=== PATIENT | female | born 1935 | race Caucasian/White ===

== ENCOUNTER 2018-06-06 11:22 | Observation (INO) ==
[2018-06-06] MEDS ORDERED: Ondansetron 4 MG/2 ML VIAL IVP ONE (11:30)
[2018-06-06] MEDS ORDERED: Nystatin Cream 15 GM TUBE TP STA (11:31)
[2018-06-06] MEDS ORDERED: Ipratropium/Albuterol Neb 3 ML IH ONE (11:31)
[2018-06-06] MEDS ORDERED: 0.9 % Sodium Chloride 500 ML IVC ONE (11:31)
[2018-06-06] MEDS ORDERED: Erythromycin OPTH Oint LEFT EYE STA (11:31)
[2018-06-06] MEDS ORDERED: Isovue-370 500 ML INFUS..BTL IV ONE (11:36)
--- NOTE | 2018-06-06 11:36 | Emergency Department Note ---
Disposition Clinical Impression: Bacterial conjunctivitis of left eye, Yeast infection of the skin, Weakness, Pulmonary vascular congestion UTI (urinary tract infection) Qualifiers: Urinary tract infection type: site unspecified Hematuria presence: without hematuria Qualified Code(s): N39.0 - Urinary tract infection, site not specified Disposition: Admitted As Inpatient Condition: Fair General Adult HPI - General Chief complaint: ED General Medical Stated complaint: General Time Seen by Provider: 06/06/18 11:30 Source: patient, EMS Limitations: no limitations Nursing Notes Reviewed: Yes Vital Signs Reviewed: Yes - History of Present Illness HPI Narrative: 82-year-old female with history of diabetes, COPD on home oxygen, tremors, significant cardiac history presents from home for evaluation of multiple complaints. Patient states symptoms been getting worse over the last week. Patient describes nausea with several episodes of vomiting this morning. She has had loose stools of last several days describes 3-4 episodes without blood. Patient states she has been more short of breath over the last 2 weeks. Patient with decreased exertional capacity. 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 The patient states that they were looking for nerve damage. Patient has no specific known sick contacts. Pain Scale: 0 - Related Data Home Medications Medication Instructions Recorded Confirmed Aspirin [Adult Low Dose Aspirin EC] 81 mg PO DAILY 10/17/15 06/06/18 Gabapentin [Neurontin] 300 mg PO TID 10/17/15 06/06/18 Lisinopril [Zestril] 5 mg PO BID 10/17/15 06/06/18 Metoprolol [Lopressor] 50 mg PO BID 10/17/15 06/06/18 Primidone [Mysoline] 50 mg PO DAILY 10/17/15 06/06/18 Trospium Chloride 20 mg PO DAILY 10/17/15 06/06/18 predniSONE [PredniSONE] 2.5 mg PO BID 10/17/15 06/06/18 Citalopram Hydrobromide [Celexa] 20 mg PO DAILY 12/07/15 06/06/18 Cyanocobalamin (Vitamin B-12) 1,000 mcg PO DAILY 12/07/15 06/06/18 [Vitamin B12] Ferrous Sulfate [Iron] 325 mg PO BID 12/07/15 06/06/18 Loratadine [Claritin] 10 mg PO DAILY 12/07/15 06/06/18 Pantoprazole Sodium [Protonix] 40 mg PO DAILY 12/22/15 06/06/18 Atorvastatin [Lipitor] 40 mg PO HS 06/02/17 06/06/18 Levothyroxine Sodium [Levoxyl] 50 mcg PO DAILY 06/02/17 06/06/18 Saxagliptin HCl [Onglyza] 5 mg PO DAILY 06/02/17 06/06/18 Cholecalciferol (Vitamin D3) 2,000 unit PO DAILY 07/16/17 06/06/18 [Vitamin D] Colchicine [Colcrys] 0.6 mg PO DAILY 07/16/17 06/06/18 Glimepiride [Amaryl] 1 mg PO DAILY 11/10/17 06/06/18 Alendronate Sodium [Fosamax] 70 mg PO QWEEK 06/06/18 06/06/18 Escitalopram [Lexapro] 20 mg PO DAILY 06/06/18 06/06/18 Lactobacillus Acidophilus 1 cap PO DAILY 06/06/18 06/06/18 [Acidophilus] Previous Rx's Medication Instructions Recorded Albuterol Sulfate [Ventolin Hfa] 2 puff IH Q4HR PRN #1 each 03/25/18 Allergies Allergy/AdvReac Type Severity Reaction Status Date / Time Amoxicillin Allergy See Verified 01/14/18 11:18 Comments clavulanic acid Allergy See Verified 01/14/18 11:18 [From Augmentin] Comments Penicillins Allergy See Verified 01/14/18 11:18 Comments Sulfa (Sulfonamide Allergy See Verified 01/14/18 11:18 Antibiotics) Comments topiramate Allergy See Verified 01/14/18 11:18 Comments nitrofurantoin AdvReac Vomiting Verified 01/14/18 11:18 [From Macrobid] nitroglycerin AdvReac Headache Verified 01/14/18 11:18 Oxycodone AdvReac Hallucinati Verified 01/14/18 11:18 ng All systems ED: reviewed and negative except as stated. Constitutional: Reports: fever, chills, weakness, other (Worsening tremors) Eyes: Reports: eye discharge Cardiovascular: Reports: chest pain, dyspnea on exertion Respiratory: Reports: cough, dyspnea, wheezes Gastrointestinal: Reports: abdominal pain, nausea, vomiting, diarrhea. Denies: hematemesis, melena, hematochezia Genitourinary: Reports: urgency, dysuria, frequency Musculoskeletal: Reports: back pain (Right flank) Integumentary: Reports: rash (Underneath the left breast) Neurological: Reports: weakness (Generalized) Endocrine: Reports: fatigue Past Medical History - Past Medical History Medical history: Reports: asthma, diabetes Surgical history: Reports: angioplasty/stent, cholecystectomy, hysterectomy, knee replacement, orthopedic, other Psychiatric history: Reports: anxiety, depression - Social History Smoking Status: Never smoker Smokeless Tobacco Status: No Alcohol use: Reports: none Drug use: Reports: none Physical Exam General: Patient with generalized tremor, generalized weakness Head: Normocephalic Atraumatic Eyes: PERRL, EOMI; conjunctivitis with mild discharged to the left eye. ENT: Airway patent, no stridor Neck: supple, no meningismus Chest: Mild expiratory wheezing worse the bases Cardiac: Regular rhythm Abdomen: soft, nontender, nondistended; no guarding, rebound, or tenderness to percussion Musculoskeletal: Calves symmetric, nontender, no palpable cord Skin: Rash underneath left breast Neuro: Alert and Oriented to person, place, and time; No focal deficit, CN 2-12 symmetric and intact - General Limitations: no limitations General appearance: alert, in no apparent distress Course - Reevaluation(s) Reevaluation #1: On reevaluation the patient is complaining of left lower quadrant abdominal pain. CT scan has been ordered. Reevaluation #2: CT scan with no specific findings. Patient does have significant urinary tract infection. Patient has been given ceftriaxone. Patient's ENP is mildly elevated. She is Very vascular congestion. She will need gentle fluid resuscitation. Patient also has conjunctivae discussed as well as a fundal infection underneath the left breast. Erythromycin ointment and nystatin has been provided in the emergency department. These will likely need to be continued during her hospital stay. Further evaluation of the eye complaint. She does have drainage consistent with a purulent conjunctivitis. The patient does not have any vision decreased in that side and does not have any pain associated with extraocular muscle movements or tenderness to palpation of the eye. Reevaluation #3: After admission I was notified by nurse practitioner admitting with the hospitalist that the patient's daughter complained of slurred speech. I did evaluate the patient and she does seem more tired than she was when she got here. The patient's got multiple blankets on top of her and is now warm compared to her being previously cool to the touch. The patient did receive her initial 500 mL fluid bolus but her respiratory symptoms have gotten worse. Likely worsening of her pulmonary vascular congestion, breathing difficulty, the fact that she has a significant urinary tract infection contributing to global confusion. No focal deficits at this time. Patient is able to state her name as well as her daughter's name without any slurred speech. - Consultations Consultation #1: Discussed with hospitalist. Patient brought in secondary to living at home, weakness, urinary tract infection. Patient will need continued treatment or conjunctivitis as well as left breast fungal infection. Vital Signs Temperature 100.1 F H 06/06/18 11:24 Pulse Rate 83 06/06/18 11:24 Respiratory Rate 18 06/06/18 11:24 Blood Pressure 141/88 06/06/18 11:24 O2 Sat by Pulse Oximetry 94 06/06/18 11:24 Temperature 100.1 F H 06/06/18 11:24 Pulse Rate 83 06/06/18 11:24 Respiratory Rate 18 06/06/18 11:24 Blood Pressure 141/88 06/06/18 11:24 O2 Sat by Pulse Oximetry 96 06/06/18 11:29 Oxygen Delivery Oxygen Delivery Nasal Cannula Medical Decision Making - Medical Records Medical records reviewed: Yes I reviewed the patient's medical records. - Lab Data Lab results reviewed: Yes I reviewed the patient's lab results. Result diagrams: 06/06/18 12:25 06/06/18 12:25 Lab Results 06/06/18 06/06/18 06/06/18 Range/Units 12:20 12:25 12:25 WBC 10.2 (4.3-11.1) K/mcL RBC 3.80 L (3.82-4.97) M/mcL Hgb 11.9 (11.5-15.4) g/dL Hct 37.3 (35.3-44.9) % MCV 98.2 (83.0-100.0) fL MCH 31.3 (28.0-33.3) pg MCHC 31.9 (31.6-35.5) g/dL RDW 15.3 H (11.5-14.5) % Plt Count 174 (140-400) K/mcL MPV 10.2 (9.4-12.4) fL Immature Gran % 0.4 (0-4) % Seg Neutrophils % 85.6 % Lymphocytes % 8.2 % Monocytes % 4.3 % Eosinophils % 1.3 % Basophils % 0.2 % Neutrophils # 8.7 (1.6-8.9) K/mcL Lymphocytes # 0.8 (0.6-4.6) K/mcL Monocytes # 0.4 (0.0-1.3) K/mcL Eosinophils # 0.1 (0.0-0.6) K/mcL Basophils # 0.0 (0.0-0.2) K/mcL Sodium 130 L (136-145) mEq/L Potassium 4.4 (3.5-5.1) mEq/L Chloride 94 L (98-107) mEq/L Carbon Dioxide 29 (23-29) mEq/L BUN 20 (8-23) mg/dL Creatinine 1.02 (0.60-1.20) mg/dL Est GFR ( Amer) > 60 (> 60) Est GFR (Non-Af Amer) 52 L (> 60) BUN/Creatinine Ratio 20 (6-26) Glucose 182 H (70-105) mg/dL Calculated Osmolality 277 L (280-300) Lactic Acid 1.5 (0.5-2.2) mmol/L Calcium 9.2 (8.6-10.3) mg/dL Troponin I (< 0.04) ng/mL B-Natriuretic Peptide (Less than 100) pg/mL Urine Color (Yellow) Urine Clarity (Clear) Urine pH (5.0-8.0) pH Units Ur Specific Vivian (1.010-1.025) Urine Protein (Neg-Trace) mg/dL Urine Glucose (UA) (Normal) mg/dL Urine Ketones (Negative) mg/dL Urine Blood (Negative) Urine Nitrite (Negative) Urine Bilirubin (Negative) Urine Urobilinogen (Normal) mg/dL Ur Leukocyte Esterase (Negative) Urine Microscopic RBC (0-3) per hpf Urine Microscopic WBC (0-3) per hpf Ur Squamous Epith Cells (None-Few) per lpf Urine Bacteria (None-Few) per hpf Hyaline Casts (None-Few) per lpf Urine Yeast Ur Culture Indicated? (NO) 09/22/18 09/22/18 09/22/18 Range/Units 12:25 12:25 12:43 WBC (4.3-11.1) K/mcL RBC (3.82-4.97) M/mcL Hgb (11.5-15.4) g/dL Hct (35.3-44.9) % MCV (83.0-100.0) fL MCH (28.0-33.3) pg MCHC (31.6-35.5) g/dL RDW (11.5-14.5) % Plt Count (140-400) K/mcL MPV (9.4-12.4) fL Immature Gran % (0-4) % Seg Neutrophils % % Lymphocytes % % Monocytes % % Eosinophils % % Basophils % % Neutrophils # (1.6-8.9) K/mcL Lymphocytes # (0.6-4.6) K/mcL Monocytes # (0.0-1.3) K/mcL Eosinophils # (0.0-0.6) K/mcL Basophils # (0.0-0.2) K/mcL Sodium (136-145) mEq/L Potassium (3.5-5.1) mEq/L Chloride (98-107) mEq/L Carbon Dioxide (23-29) mEq/L BUN (8-23) mg/dL Creatinine (0.60-1.20) mg/dL Est GFR ( Amer) (> 60) Est GFR (Non-Af Amer) (> 60) BUN/Creatinine Ratio (6-26) Glucose (70-105) mg/dL Calculated Osmolality (280-300) Lactic Acid (0.5-2.2) mmol/L Calcium (8.6-10.3) mg/dL Troponin I < 0.03 (< 0.04) ng/mL B-Natriuretic Peptide 163 H (Less than 100) pg/mL Urine Color Yellow (Yellow) Urine Clarity Turbid A (Clear) Urine pH 5.5 (5.0-8.0) pH Units Ur Specific Vivian 1.016 (1.010-1.025) Urine Protein 30 H (Neg-Trace) mg/dL Urine Glucose (UA) Normal (Normal) mg/dL Urine Ketones Negative (Negative) mg/dL Urine Blood Small H (Negative) Urine Nitrite Negative (Negative) Urine Bilirubin Negative (Negative) Urine Urobilinogen Normal (Normal) mg/dL Ur Leukocyte Esterase Large H (Negative) Urine Microscopic RBC 0-3 (0-3) per hpf Urine Microscopic WBC TNTC H (0-3) per hpf Ur Squamous Epith Cells Moderate H (None-Few) per lpf Urine Bacteria Many H (None-Few) per hpf Hyaline Casts None Seen (None-Few) per lpf Urine Yeast Test Not Performed Ur Culture Indicated? YES A (NO) - Radiology Data Radiology results reviewed: Yes I reviewed the patient's radiology results. - EKG Data EKG #1 EKG attestation: Yes I reviewed and interpreted this EKG. EKG results narrative: Sinus rhythm, 85, [place] 187. QRS 83. QTC 407. Patient has no significant elevations. Concern for mild depressions in the inferior leads most significant before meals on EKG in lead 2.
[2018-06-06 12:47] LABS: Basophils % 0.2 %; Eosinophils # 0.1 K/mcL (0.0-0.6); Eosinophils % 1.3 %; Hematocrit 37.3 % (35.3-44.9); Hemoglobin 11.9 g/dL (11.5-15.4); Immature Granulocytes % 0.4 % (0-4); Lymphocytes # 0.8 K/mcL (0.6-4.6); Lymphocytes % 8.2 %; Mean Corpuscular HGB Conc 31.9 g/dL (31.6-35.5); Mean Corpuscular Hemoglobin 31.3 pg (28.0-33.3); Mean Corpuscular Volume 98.2 fL (83.0-100.0); Mean Platelet Volume 10.2 fL (9.4-12.4); Monocytes # 0.4 K/mcL (0.0-1.3); Monocytes % 4.3 %; Neutrophils # 8.7 K/mcL (1.6-8.9); Platelet Count 174 K/mcL (140-400); Red Cell Distribution Width 15.3 % (11.5-14.5); Segmented Neutrophils % 85.6 %
[2018-06-06 13:00] LABS: BUN/Creatinine Ratio 20 (6-26); Blood Urea Nitrogen 20 mg/dL (8-23); Calcium 9.2 mg/dL (8.6-10.3); Carbon Dioxide 29 mEq/L (23-29); Chloride 94 mEq/L (98-107); Glucose 182 mg/dL (70-105); Osmolality,Calculated 277 (280-300); Potassium 4.4 mEq/L (3.5-5.1); Sodium 130 mEq/L (136-145); eGFR For Non-African Americans 52 (> 60)
[2018-06-06 13:05] LABS: Bilirubin,Urine Negative (Negative); Blood,Urine Small (Negative); Clarity,Urine Turbid (Clear); Color,Urine Yellow (Yellow); Glucose,Urine (UA) Normal (Normal); Ketones,Urine Negative (Negative); Leukocyte Esterase,Urine Large (Negative); Nitrite,Urine Negative (Negative); PH,Urine 5.5 pH Units (5.0-8.0); Protein,Urine 30 mg/dL (Neg-Trace); Specific Gravity,Urine 1.016 (1.010-1.025); Urobilinogen,Urine Normal (Normal)
[2018-06-06 13:08] LABS: Bacteria,Urine Many per hpf (None-Few); Hyaline Casts,Urine None Seen per lpf (None-Few); WBC,Urine TNTC per hpf (0-3)
[2018-06-06 13:24] LABS: RBC,Urine 0-3 per hpf (0-3)
[2018-06-06 13:25] LABS: Squamous Epithelial Cell,Urine Moderate per lpf (None-Few)
[2018-06-06] MEDS ORDERED: cefTRIAXone 1,000 MG in Water for inj. (sterile) 20 ML 10 ML IVP ONE (15:44)
[2018-06-06] MEDS ORDERED: Furosemide 40 MG/4 ML VIAL IVP STA (16:45)
[2018-06-06] MEDS ORDERED: Naloxone 0.4 MG/ML INJ IVP PRN (17:13)
[2018-06-06] MEDS ORDERED: Ondansetron 4 MG/2 ML VIAL IVP PRN (17:23)
[2018-06-06] MEDS ORDERED: Ipratropium/Albuterol Neb 3 ML IH PRN (17:25)
[2018-06-06] MEDS ORDERED: D5% in Water 1,000 ML IVC PRN (17:27)
[2018-06-06] MEDS ORDERED: *HR* Dextrose 50 % in Water (Syg) 50 ML SYRINGE IVP PRN (17:27)
[2018-06-06] MEDS ORDERED: Dextrose Gel 15 GM/37.5 ML TUBE PO PRN ×2 (17:27)
--- NOTE | 2018-06-06 17:44 | Internal Med History&Physical ---
Addendum entered and electronically signed by Alexei Moody CNP 06/06/18 19 :01: Rash noted under left and right breast, erythematous and warm. Original Note: <Alexei Moody - Last Filed: 06/06/18 18:23> Date of Encounter: 06/06/18 Time of Encounter: 16:15 Internal Medicine - H&P: HPI Chief complaint: Nausea, Vomiting, Weakness Admitted From: Home Plans for Post Hospital Care: Home History of present illness: Ms. Trotter is a 82 year old female with past medical history significant for CAD with stent, diabetes, COPD, generalized tremors, acid reflux, hypothyroidism , and osteoporosis who presents for multiple complaints including 2 day history of nausea, vomiting, fever (highest reported 100.9), chills, generalized aches, increased dyspnea, urinary frequency, and foul smelling dark urine getting progressively worse. Has generalized aches but denies specific chest pain or abdominal pain at this time. No diarrhea or known sick contacts. Also complains of swelling and drainage of left eye without vision changes and fungal infection underneath her left breast for the same duration. Most recent bowel movement was today. Denies any alleviating or exacerbating factors. No current treatment. Normally wears 2-3lpm nasal canula at home. Upon initiating my exam, patients daughter at bedside was concerned her speech had changed and was possibly slurred. Patient had just awoke upon my presentation. ER attending alerted and re examined patient and did not appreciate any neurological deficits and neither did I. Patients daughter felt her speech had improved once the patient was more awake. Discussed patient with Dr Mcdonald. Past Med Surg Social Fam HX - Past Medical History Medical history: asthma, diabetes Additional medical history: tremors Psychiatric history: anxiety, depression - Past Surgical History Surgical History: angioplasty/stent, cholecystectomy, hysterectomy, knee replacement, orthopedic, other Additional surgical history: rectocel, biopsy on both breast, broken finger - Social History Smoking Status: Never smoker Smokeless Tobacco Status: No Alcohol use: none Drug use: none - Family History Father Hx Family Cardiac Disorders: Yes Hx Family Endocrine Disorder: Yes (Diabetes) Mother Living Status: Hx Family Cardiac Disorders: Yes (CHF, Hypertension) Hx Family Endocrine Disorder: Yes (Diabetes) Internal Medicine - H&P: Meds Aspirin [Adult Low Dose Aspirin EC] 81 mg PO DAILY 10/17/15 [History] Gabapentin [Neurontin] 300 mg PO TID 10/17/15 [History] Lisinopril [Zestril] 5 mg PO BID 10/17/15 [History] Metoprolol [Lopressor] 50 mg PO BID 10/17/15 [History] Primidone [Mysoline] 50 mg PO DAILY 10/17/15 [History] Trospium Chloride 20 mg PO DAILY 10/17/15 [History] predniSONE [PredniSONE] 2.5 mg PO BID 10/17/15 [History] Citalopram Hydrobromide [Celexa] 20 mg PO DAILY 12/07/15 [History] Cyanocobalamin (Vitamin B-12) [Vitamin B12] 1,000 mcg PO DAILY 12/07/15 [History ] Ferrous Sulfate [Iron] 325 mg PO BID 12/07/15 [History] Loratadine [Claritin] 10 mg PO DAILY 12/07/15 [History] Pantoprazole Sodium [Protonix] 40 mg PO DAILY 12/22/15 [History] Atorvastatin [Lipitor] 40 mg PO HS 06/02/17 [History] Levothyroxine Sodium [Levoxyl] 50 mcg PO DAILY 06/02/17 [History] Saxagliptin HCl [Onglyza] 5 mg PO DAILY 06/02/17 [History] Cholecalciferol (Vitamin D3) [Vitamin D] 2,000 unit PO DAILY 07/16/17 [History] Colchicine [Colcrys] 0.6 mg PO DAILY 07/16/17 [History] Glimepiride [Amaryl] 1 mg PO DAILY 11/10/17 [History] Albuterol Sulfate [Ventolin Hfa] 2 puff IH Q4HR PRN #1 each 03/25/18 [Rx] Alendronate Sodium [Fosamax] 70 mg PO QWEEK 06/06/18 [History] Escitalopram [Lexapro] 20 mg PO DAILY 06/06/18 [History] Lactobacillus Acidophilus [Acidophilus] 1 cap PO DAILY 06/06/18 [History] 3 Allergy/AdvReac Type Severity Reaction Status Date / Time Amoxicillin Allergy See Verified 01/14/18 11:18 Comments clavulanic acid Allergy See Verified 01/14/18 11:18 [From Augmentin] Comments Penicillins Allergy See Verified 01/14/18 11:18 Comments Sulfa (Sulfonamide Allergy See Verified 01/14/18 11:18 Antibiotics) Comments topiramate Allergy See Verified 01/14/18 11:18 Comments nitrofurantoin AdvReac Vomiting Verified 01/14/18 11:18 [From Macrobid] nitroglycerin AdvReac Headache Verified 01/14/18 11:18 Oxycodone AdvReac Hallucinati Verified 01/14/18 11:18 ng All Systems PM: A 10-system review of systems was performed and is negative for pertinent findings except as documented above in the HPI. - Constitutional Vitals: Temp Pulse Resp BP Pulse Ox 99.8 F H 83 18 135/76 96 06/06/18 17:17 06/06/18 11:24 06/06/18 17:07 06/06/18 17:07 06/06/18 11:29 Exam: General: Drowsy. Oriented x3. Skin:Normal color, no rash, no lesions. Rash noted under left breast, erythematous and warm. HEENT:Pupils equal, round and reactive. Left eye red and edematous with drainage. Cardiovascular:Heart sounds distant. Normal S1 & S2, no rubs, murmurs or gallops. No JVD. Pulse regular. Lungs:Breath sounds decreased, no wheezes or crackles. Respirations slightly labored with no accessory muscle use. Abdomen:Soft, non-tender, no rigidity. Extremities:No deformity, no edema or tenderness, no joint swelling or clubbing. Neurological:Normal cognition and motor skills. Chronic generalized tremor noted. Pulses:Carotid and radial pulses normal +2. Rest of the physical exam is non contributory. Internal Med - H&P Results - Labs CBC & Chem 7: 06/06/18 12:25 06/06/18 12:25 - Assessment and plan (1) UTI (urinary tract infection) Current Visit: Yes Status: Acute Assessment and plan: Rocephin started in ER, will continue same tomorrow. Urine culture pending. Blood cultures pending. Monitor closely for sepsis. Qualifiers: Urinary tract infection type: site unspecified Hematuria presence: with hematuria Qualified Code(s): N39.0 - Urinary tract infection, site not specified; R31.9 - Hematuria, unspecified (2) Shortness of breath Current Visit: Yes Status: Acute Assessment and plan: BIPAP ordered. Duoneb treatment in ER, continue as needed. Monitor I/O. Echocardiogram ordered. Lasix received in ER. Does not take regularly will continue to reassess for further need in light of dehydration. (3) Cellulitis Current Visit: Yes Status: Acute Assessment and plan: Start vancomycin. MRSA swab ordered. Monitor closely for sepsis. Qualifiers: Site of cellulitis: trunk Site of cellulitis of trunk: chest wall Qualified Code(s): L03.313 - Cellulitis of chest wall (4) Bacterial conjunctivitis of left eye Current Visit: Yes Status: Acute Assessment and plan: Erythromycin ointment started in ER, will continue the same. (5) Nausea & vomiting Current Visit: Yes Status: Acute Assessment and plan: Zofran as needed. Encourage oral intake. Qualifiers: Vomiting type: unspecified Vomiting Intractability: non-intractable Qualified Code(s): R11.2 - Nausea with vomiting, unspecified (6) Diabetes mellitus Current Visit: Yes Status: Acute Assessment and plan: Accucheck ACHS. Sliding scale insulin. Diabetic diet. Hold home diabetic medications. Qualifiers: Diabetes mellitus type: type 2 Diabetes mellitus tourist information officer insulin use: without half-way use Diabetes mellitus complication status: without complication Qualified Code(s): E11.9 - Type 2 diabetes mellitus without complications (7) Dehydration Current Visit: Yes Status: Acute Assessment and plan: Zofran for nausea. Encourage oral intake. Repeat labs in a.m. - Time Spent With Patient Total time spent is greater than 50% in coordination of care (as documented) at patient's floor/unit and/or counseling patient: <Karen Mcdonald T - Last Filed: 06/06/18 19:21> Date of Encounter: 06/06/18 Internal Medicine - H&P: HPI History of present illness: Ms. Trotter is a 82 year old female All Systems PM: A 10-system review of systems was performed and is negative for pertinent findings except as documented above in the HPI. - Constitutional Vitals: Temp Pulse Resp BP Pulse Ox 101.2 F H 97 16 131/74 97 06/06/18 18:18 06/06/18 18:18 06/06/18 18:18 06/06/18 18:18 06/06/18 18:18 Internal Med - H&P Results - Labs CBC & Chem 7: 06/06/18 12:25 06/06/18 12:25 - Time Spent With Patient Total time spent is greater than 50% in coordination of care (as documented) at patient's floor/unit and/or counseling patient: - Attending Attestation Seen and examined the patient face to face. Also discussed case with PATENT LEGAL ASSISTANT. Agree with the nurse practitioners H&P. In addition to following comments. Mentation not completely at baseline per family was at bedside. Patient has mild conversational dyspnea. Exam Neuro: On exam she is alert oriented 3. Good strength in all extremities. Plantar flexor. Cranial nerves grossly unremarkable motor and sensory exam grossly unremarkable. Has tremors at baseline. Skin: Extensive cellulitis under both breasts and groin which is painful, erythematous and warm. Eye: Patient has purulent discharge from the right eye. Swelling of upper and lower eyelids mildly painful. Extraocular movements nonpainful nonlimited. Pupils equally reactive to light bilaterally. RS: Mild rales at the bases. Air entry equal bilaterally. CVS: S1, S2 is normal, no murmur rubs or gallops. Abdomen: Obese, A/P - Altered mentation most likely from sepsis. We will get head CT to rule out intracranial processes. - We will add vancomycin given the previous urine cultures as well as cellulitis. Possible fungal infection, currently. We will add topical having antifungals. Follow-up blood and urine cultures - We will keep patient on BiPAP given chest x-ray finding of mild pulmonary edema and some shortness of breath. 1 dose of Lasix. - Add topical erythromycin ointment for conjunctivitis in the right eye.
[2018-06-06] MEDS ORDERED: (Alendronate Sodium [Fosamax] 70 MG) PO SCH (18:30)
[2018-06-06] MEDS: Insulin LISPRO 300 UNITS/3 ML VIAL SQ SCH (20:56)
[2018-06-06] MEDS: Nystatin Cream 15 GM TUBE TP SCH (20:57)
[2018-06-06] MEDS: predniSONE 5 MG TABLET PO SCH (20:58)
[2018-06-06] MEDS: Gabapentin 300 MG CAPSULE PO SCH (20:58)
[2018-06-06 21:16] LABS: ABG Base Excess 3 mEq/L (-2 to 3); ABG HCO3 28 mEq/L (21-27); ABG Oxygen Saturation 97 % (95-98); ABG PCO2 41 mmHg (35-45); ABG PH 7.43 pH Units (7.32-7.45); ABG PO2 89 mmHg (85-104); ABG TCO2 29 mEq/L (20-26)
[2018-06-06] MEDS: Erythromycin OPTH Oint LEFT EYE SCH (22:30)
[2018-06-07] MEDS: *HR* Enoxaparin 30 MG/0.3 ML SYRINGE SQ SCH (06:20)
[2018-06-07 06:39] LABS: Basophils % 0.2 %; Eosinophils % 0.2 %; Hematocrit 33.2 % (35.3-44.9); Hemoglobin 10.8 g/dL (11.5-15.4); Immature Granulocytes % 0.3 % (0-4); Lymphocytes # 0.4 K/mcL (0.6-4.6); Lymphocytes % 3.6 %; Mean Corpuscular HGB Conc 32.5 g/dL (31.6-35.5); Mean Corpuscular Hemoglobin 31.5 pg (28.0-33.3); Mean Corpuscular Volume 96.8 fL (83.0-100.0); Mean Platelet Volume 9.7 fL (9.4-12.4); Monocytes # 0.4 K/mcL (0.0-1.3); Monocytes % 3.5 %; Neutrophils # 10.7 K/mcL (1.6-8.9); Platelet Count 145 K/mcL (140-400); Red Blood Count 3.43 M/mcL (3.82-4.97); Red Cell Distribution Width 15.7 % (11.5-14.5); Segmented Neutrophils % 92.2 %
[2018-06-07 07:01] LABS: Calcium 8.4 mg/dL (8.6-10.3); Potassium 4.3 mEq/L (3.5-5.1)
[2018-06-07] MEDS: predniSONE 5 MG TABLET PO SCH ×2 (07:42→21:26)
[2018-06-07] MEDS: Insulin LISPRO 300 UNITS/3 ML VIAL SQ SCH ×4 (07:42→21:26)
[2018-06-07] MEDS: Cyanocobalamin (B-12) 1,000 MCG TABLET PO SCH (07:44)
[2018-06-07] MEDS: Lactobacillus 1 EACH CAP.SPRINK PO SCH (07:44)
[2018-06-07] MEDS: Cholecalciferol (D-3) 1,000 UNIT TABLET PO SCH (07:44)
[2018-06-07] MEDS: Aspirin Enteric Coated 81 MG Tablet PO SCH (07:44)
[2018-06-07] MEDS: Loratadine 10 MG TABLET PO SCH (07:44)
[2018-06-07] MEDS: cefTRIAXone 1,000 MG in Water for inj. (sterile) 20 ML 10 ML IVP SCH (07:45)
[2018-06-07] MEDS: Primidone 50 MG TABLET PO SCH (07:45)
[2018-06-07] MEDS: Gabapentin 300 MG CAPSULE PO SCH ×3 (07:45→21:26)
[2018-06-07] MEDS: (Trospium Chloride [Trospium Chloride] 20 MG) PO SCH (07:45)
[2018-06-07] MEDS: Erythromycin OPTH Oint LEFT EYE SCH ×3 (07:45→21:26)
[2018-06-07] MEDS: Nystatin Cream 15 GM TUBE TP SCH ×2 (07:46→21:26)
[2018-06-07] MEDS: Colchicine 0.6 MG TABLET PO SCH (07:46)
--- NOTE | 2018-06-07 12:46 | Internal Med Progress Note ---
Hospitalist Progress Note - Encounter Date of Encounter: 06/07/18 Time of Encounter: 12:46 - Subjective Interval History: Pt having rigors this morning. Temp 99.8, States she is "freezing" Denies vomiting but positive nausea. Denies CP or SOB. Denies constipation or diarrhea. - Exam Vitals: Temp Pulse Resp BP Pulse Ox 98.2 F 88 18 112/64 93 06/07/18 06:45 06/07/18 06:45 06/07/18 06:45 06/07/18 06:45 06/07/18 06:45 Exam: General: Drowsy. Oriented x3. Obese Skin:Normal color, no rash, no lesions. Rash noted under left breast, erythematous and warm. HEENT:Pupils equal, round and reactive. Left eye red and edematous with drainage. Cardiovascular:Heart sounds distant. Normal S1 & S2, no rubs, murmurs or gallops. No JVD. Pulse regular. Lungs:Breath sounds decreased, no wheezes or crackles. Respirations slightly labored with no accessory muscle use. Abdomen:Soft, non-tender, no rigidity. Extremities:No deformity, no edema or tenderness, no joint swelling or clubbing. Neurological:Normal cognition and motor skills. Chronic generalized tremor noted. Pulses:Carotid and radial pulses normal +2. Rest of the physical exam is non contributory. - Assessment and Plan (1) UTI (urinary tract infection) Current Visit: Yes Status: Acute Assessment and Plan: Rocephin started in ER, will continue same tomorrow. Urine culture growing gram negative vargas. Blood cultures pending. Monitor closely for sepsis. (2) Bacterial conjunctivitis of left eye Current Visit: Yes Status: Acute Assessment and Plan: Erythromycin ointment started in ER, will continue the same. (3) Shortness of breath Current Visit: Yes Status: Acute (4) Nausea & vomiting Current Visit: Yes Status: Acute Assessment and Plan: Zofran as needed. Encourage oral intake. (5) Cellulitis Current Visit: Yes Status: Acute Assessment and Plan: Started on Vancomycin. MRSA swab ordered. Monitor closely for sepsis. (6) Diabetes mellitus Current Visit: Yes Status: Acute Assessment and Plan: Accu check ACHS. Sliding scale insulin. Diabetic diet. Hold home diabetic medications. (7) Dehydration Current Visit: Yes Status: Acute Assessment and Plan: Encourage PO intake (8) Hypotension Current Visit: Yes Status: Acute Assessment and Plan: Will give fluid bolus now and order maintenance fluid. Chest x ray on admission showed mild pulmonary congestion so pt was given one time dose lasix. Pt is on Lisinopril 5 mg PO BID which we'll hold for now. (9) Hyponatremia Current Visit: Yes Status: Acute Assessment and Plan: Will give IVF and check monitor sodium level Q4H. Pt recieved Lasix 40 mg x one. DVT Prophylaxis: Lovenox - Summary of Assessment and Plan Summary of Assessment and Plan: Ms. Trotter is a 82 year old female with past medical history significant for CAD with stent, diabetes, COPD, generalized tremors, acid reflux, hypothyroidism , and osteoporosis who presents for multiple complaints including 2 day history of nausea, vomiting, fever (highest reported 100.9), chills, generalized aches, increased dyspnea, urinary frequency, and foul smelling dark urine getting progressively worse. - Time Spent with Patient Total time spent is greater than 50% in coordination of care (as documented) at patient's floor/unit and/or counseling patient: 25 - 35 minutes Plan of Care Discussed with: patient Internal Medicine: Result - Labs CBC & Chem 7: 06/07/18 06:29 06/07/18 06:29 Labs: Short CBC 06/07/18 Range/Units 06:29 WBC 11.6 H (4.3-11.1) K/mcL Hgb 10.8 L (11.5-15.4) g/dL Hct 33.2 L (35.3-44.9) % Plt Count 145 (140-400) K/mcL Neutrophils # 10.7 H (1.6-8.9) K/mcL BMP 06/07/18 06:29 Sodium 128 L Potassium 4.3 Chloride 94 L Carbon Dioxide 27 BUN 25 H Creatinine 1.20 Glucose 337 H Calcium 8.4 L - ABG Interpretation ABG results: ABG ABG pH 7.43 pH Units (7.32-7.45) 06/06/18 21:13 ABG pCO2 41 mmHg (35-45) 06/06/18 21:13 ABG pO2 89 mmHg (85-104) 06/06/18 21:13 ABG O2 Saturation 97 % (95-98) 06/06/18 21:13 Consult Discharge Plan - Plan Referrals: Phyllis,Claudy Morales MD [Primary Care Provider] - (1) UTI (urinary tract infection) Qualifiers: Urinary tract infection type: site unspecified Hematuria presence: with hematuria Qualified Code(s): N39.0 - Urinary tract infection, site not specified; R31.9 - Hematuria, unspecified (4) Nausea & vomiting Qualifiers: Vomiting type: unspecified Vomiting Intractability: non-intractable Qualified Code(s): R11.2 - Nausea with vomiting, unspecified (5) Cellulitis Qualifiers: Site of cellulitis: trunk Site of cellulitis of trunk: chest wall Qualified Code(s): L03.313 - Cellulitis of chest wall (6) Diabetes mellitus Qualifiers: Diabetes mellitus type: type 2 Diabetes mellitus ferry terminal agent insulin use: without ferry terminal agent use Diabetes mellitus complication status: without complication Qualified Code(s): E11.9 - Type 2 diabetes mellitus without complications
[2018-06-07] MEDS ORDERED: 0.9 % Sodium Chloride 500 ML IVC ONE (15:45)
[2018-06-07] MEDS ORDERED: 0.9 % Sodium Chloride 500 ML ONE (16:02)
[2018-06-07] MEDS ORDERED: 0.9 % Sodium Chloride 1,000 ML IVC ONE (16:18)
[2018-06-08] MEDS: *HR* Enoxaparin 30 MG/0.3 ML SYRINGE SQ SCH (06:12)
[2018-06-08] MEDS: (Trospium Chloride [Trospium Chloride] 20 MG) PO SCH (07:14)
[2018-06-08] MEDS ORDERED: Aminoglycoside Consult 1 EACH MC ONE (08:18)
[2018-06-08] MEDS: Nystatin Cream 15 GM TUBE TP SCH (09:07)
[2018-06-08] MEDS: Insulin LISPRO 300 UNITS/3 ML VIAL SQ SCH ×4 (09:07→21:38)
[2018-06-08] MEDS: cefTRIAXone 1,000 MG in Water for inj. (sterile) 20 ML 10 ML IVP SCH (09:08)
[2018-06-08] MEDS: Erythromycin OPTH Oint LEFT EYE SCH ×3 (09:08→20:11)
[2018-06-08] MEDS: Lactobacillus 1 EACH CAP.SPRINK PO SCH (09:09)
[2018-06-08] MEDS: Primidone 50 MG TABLET PO SCH (09:09)
[2018-06-08] MEDS: Loratadine 10 MG TABLET PO SCH (09:09)
[2018-06-08] MEDS: Aspirin Enteric Coated 81 MG Tablet PO SCH (09:09)
[2018-06-08] MEDS: predniSONE 5 MG TABLET PO SCH ×2 (09:09→20:10)
[2018-06-08] MEDS: Colchicine 0.6 MG TABLET PO SCH (09:10)
[2018-06-08] MEDS: Gabapentin 300 MG CAPSULE PO SCH ×3 (09:10→20:10)
[2018-06-08] MEDS: Cholecalciferol (D-3) 1,000 UNIT TABLET PO SCH (09:10)
[2018-06-08] MEDS: Cyanocobalamin (B-12) 1,000 MCG TABLET PO SCH (09:10)
--- NOTE | 2018-06-08 10:49 | Internal Med Progress Note ---
Hospitalist Progress Note - Encounter Date of Encounter: 06/08/18 Time of Encounter: 19:51 - Subjective Interval History: Pt having rigors this morning. Temp 99.8 06/07/18 and Temp 1002. 06/08/18. States she is "freezing." Denies vomiting but positive nausea. Denies CP or SOB. Denies constipation or diarrhea. Discussed current medical status and management with pt's daughter. - Exam Vitals: Temp Pulse Resp BP Pulse Ox 97.9 F 94 15 78/44 96 06/08/18 06:47 06/08/18 06:47 06/08/18 06:47 06/08/18 06:47 06/08/18 06:47 Exam: General: Drowsy. Oriented x3. Obese Skin:Normal color, no rash, no lesions. Rash noted under left breast, erythematous and warm. HEENT:Pupils equal, round and reactive. Left eye red and edematous with drainage. Cardiovascular:Heart sounds distant. Normal S1 & S2, no rubs, murmurs or gallops. No JVD. Pulse regular. Lungs:Breath sounds decreased, no wheezes or crackles. Respirations slightly labored with no accessory muscle use. Abdomen:Soft, non-tender, no rigidity. Extremities:No deformity, no edema or tenderness, no joint swelling or clubbing. Neurological:Normal cognition and motor skills. Chronic generalized tremor noted. Pulses:Carotid and radial pulses normal +2. Rest of the physical exam is non contributory. - Assessment and Plan (1) Sepsis due to gram-negative UTI Current Visit: Yes Status: Acute Assessment and Plan: Today CT chest showing RLL opacity that has increased. Now on Rocephin, Zithromax, and Vancomycin. Pt lives alone and may need placement at discharge (2) PNA (pneumonia) Current Visit: Yes Status: Acute Assessment and Plan: Per nurse, pt's saturation dropped to 71% on her baseline 2L of oxygen. Oxygen improved on 3L NC. ABG reviewed and ok. Pt wheezing per nurse so CT chest ordered. CXR 06/06/18 did not show opacity or infiltrate. CT chest showed increased RLL opacity, PNA vs mass. Has been on Rocephin. Will start on Zithromax IV as well for atypical coverage. Will need out pt follow up imaging to reassess RLL. Will consult speech for swallow eval. Checking sputum culture, legionella urine (in light of low Na), strep urine ag, and Mycoplasma, Chest x ray 06/06/18 XR/XR chest 1V portable IMPRESSION: Mild pulmonary vascular congestion. Low lung volumes. CT chest CT/CT chest wo con IMPRESSION: 1. Hypoinflated lungs and bilateral dependent atelectasis. 2. Increase in size of focal opacification in the right lower lobe, now measuring about 3 x 1.6 cm, previously 0.9 x 0.7 cm. This may represent focal pneumonia versus neoplasm. Short-term follow-up chest CT in approximately 2 months time is recommended. 3. Atherosclerotic disease and coronary artery disease. D/ / Kassandra Chong MD / Kassandra Chong MD (3) Bacterial conjunctivitis of left eye Current Visit: Yes Status: Acute Assessment and Plan: Erythromycin ointment started in ER, will continue the same. (4) Shortness of breath Current Visit: Yes Status: Acute Assessment and Plan: Per nurse, pt's saturation dropped to 71% on her baseline 2L of oxygen. Oxygen improved on 3L NC. ABG reviewed and ok. CXR did not show opacity or infiltrate. CT chest ordered today concerning for PNA vs mass. Added Zithromax IV and had been on Rocephin for cellulitis. Checking sputum culture, legionella urine (in light of low Na), strep urine ag, and Mycoplasma, Chest x ray 06/06/18 XR/XR chest 1V portable IMPRESSION: Mild pulmonary vascular congestion. Low lung volumes. (5) Nausea & vomiting Current Visit: Yes Status: Acute Assessment and Plan: Zofran prn (6) Cellulitis Current Visit: Yes Status: Acute Assessment and Plan: Vancomycin and Rocephin (7) Dehydration Current Visit: Yes Status: Acute Assessment and Plan: Pt went into NADER with fluids so holding for now. (8) Hypotension Current Visit: Yes Status: Acute Assessment and Plan: Chest x ray on admission showed mild pulmonary congestion on admission so pt was given one time dose lasix. Pt was hypotensive 06/07/18 so fluid bolus was given and order maintenance fluid. Today pt is in NADER, so fluid discontinued for now. Will check BMP in am if does not improve or worse Will consider nephrology consult. Lisinopril 5 mg PO BID on hold for now. Will continue to monitor BP. (9) Hyponatremia Current Visit: Yes Status: Acute Assessment and Plan: Checking Na studies ( urine/ serum osmo, and urine Na) to eval for SIADH. Could be due to PNA. (10) Acute cystitis Current Visit: Yes Status: Acute Assessment and Plan: due to Ecoli. Eccoli sensitive to multiple antibiotic, however due to recent dx , of PNA, will continue on IV Rocepohin for now. (11) Odynophagia Current Visit: Yes Status: Acute Assessment and Plan: pt complaining of sor throat and pain with swallowing. Ordering nystatin switch and spit. Rapid strep test negative (12) Diabetes mellitus Current Visit: Yes Status: Acute Assessment and Plan: Accu check ACHS. Sliding scale insulin. Diabetic diet. Hold home diabetic medications. DVT Prophylaxis: Lovenox - Summary of Assessment and Plan Summary of Assessment and Plan: Ms. Trotter is a 82 year old female with past medical history significant for CAD with stent, diabetes, COPD, generalized tremors, acid reflux, hypothyroidism , and osteoporosis who presents for multiple complaints including 2 day history of nausea, vomiting, fever (highest reported 100.9), chills, generalized aches, increased dyspnea, urinary frequency, and foul smelling dark urine getting progressively worse. - Time Spent with Patient Total time spent is greater than 50% in coordination of care (as documented) at patient's floor/unit and/or counseling patient: 25 - 35 minutes Plan of Care Discussed with: family Internal Medicine: Result - Labs CBC & Chem 7: 06/08/18 11:02 06/08/18 11:02 Labs: BMP 06/07/18 06/07/18 06/08/18 16:30 20:08 00:32 Sodium 125 L 127 L 128 L 06/08/18 04:28 Sodium 127 L - ABG Interpretation ABG results: ABG ABG pH 7.43 pH Units (7.32-7.45) 06/06/18 21:13 ABG pCO2 41 mmHg (35-45) 06/06/18 21:13 ABG pO2 89 mmHg (85-104) 06/06/18 21:13 ABG O2 Saturation 97 % (95-98) 06/06/18 21:13 - Impressions Impressions Echocardiogram 06/07/18 17:28 Impressions: LVEF 65%. Mild left ventricular diastolic dysfunction. Normal right ventricular structure and function. No significant valvular abnormality Unable to estimate RVSP due to lack of TR jet. Left Ventricular Wall Motion: Rest Echo Findings All wall segments showed normal motion. Findings: Study Quality * Technically adequate exam. ECG Findings * Normal sinus rhythm. Left Ventricle * LVEF 65%. * Mildly dilated left ventricle. * Mild left ventricular diastolic dysfunction. Right Ventricle * Normal right ventricular structure and function. Left Atrium * Normal left atrial size. Right Atrium * Normal right atrial size. Interatrial Septum * No evidence of PFO by color Doppler. Aortic Valve * Trileaflet aortic valve. * Trileaflet aortic valve with normal function. * No aortic regurgitation. * No aortic stenosis. Tricuspid Valve * Normal tricuspid valve structure and function. * No tricuspid regurgitation. * No tricuspid stenosis. * Unable to estimate RVSP due to lack of TR jet. Mitral Valve * Normal mitral valve structure and function. * No mitral regurgitation. * No mitral stenosis. Aorta * Normally sized aortic root. Pericardium * The pericardium appears normal. IVC * Normal IVC dimensions and inspiratory collapse. Pulmonary Artery * Normal visualized portions of the main pulmonary artery. Consult Discharge Plan - Plan [facility]: [facility] [place] [Primary Care Provider] - (5) Nausea & vomiting Qualifiers: Vomiting type: unspecified Vomiting Intractability: non-intractable Qualified Code(s): R11.2 - Nausea with vomiting, unspecified (6) Cellulitis Qualifiers: Site of cellulitis: trunk Site of cellulitis of trunk: chest wall Qualified Code(s): L03.313 - Cellulitis of chest wall (12) Diabetes mellitus Qualifiers: Diabetes mellitus type: type 2 Diabetes mellitus group home insulin use: without group home use Diabetes mellitus complication status: without complication Qualified Code(s): E11.9 - Type 2 diabetes mellitus without complications
[2018-06-08] MEDS ORDERED: 0.9 % Sodium Chloride 1,000 ML IVC ONE (10:51)
[2018-06-08 11:17] LABS: Basophils % 0.2 %; Eosinophils # 0.1 K/mcL (0.0-0.6); Hematocrit 35.4 % (35.3-44.9); Hemoglobin 11.3 g/dL (11.5-15.4); Immature Granulocytes % 0.5 % (0-4); Lymphocytes # 0.7 K/mcL (0.6-4.6); Lymphocytes % 5.8 %; Mean Corpuscular HGB Conc 31.9 g/dL (31.6-35.5); Mean Corpuscular Hemoglobin 31.6 pg (28.0-33.3); Mean Corpuscular Volume 98.9 fL (83.0-100.0); Mean Platelet Volume 10.2 fL (9.4-12.4); Monocytes # 0.4 K/mcL (0.0-1.3); Monocytes % 2.9 %; Neutrophils # 10.7 K/mcL (1.6-8.9); Platelet Count 142 K/mcL (140-400); Red Blood Count 3.58 M/mcL (3.82-4.97); Red Cell Distribution Width 15.5 % (11.5-14.5); Segmented Neutrophils % 89.6 %
[2018-06-08] MEDS ORDERED: Isovue-370 500 ML INFUS..BTL IV ONE (11:17)
[2018-06-08 11:41] LABS: Calcium 8.2 mg/dL (8.6-10.3); Potassium 4.4 mEq/L (3.5-5.1)
[2018-06-08 11:48] LABS: Troponin I 0.03 ng/mL (< 0.04)
[2018-06-08] MEDS: Nystatin SUSP 5 ML UD.LIQ PO SCH ×3 (12:34→20:10)
[2018-06-08 17:03] LABS: ABG Base Excess -3 mEq/L (-2 to 3); ABG HCO3 21 mEq/L (21-27); ABG Oxygen Saturation 99 % (95-98); ABG PCO2 32 mmHg (35-45); ABG PH 7.41 pH Units (7.32-7.45); ABG PO2 143 mmHg (85-104); ABG TCO2 22 mEq/L (20-26)
--- NOTE | 2018-06-08 17:12 | Electrocardiograph Report ---
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
--- NOTE | 2018-06-08 17:29 | Electrocardiograph Report ---
[address] [place], [place] [address] Test Date: 2018-06-06 Pat Name: Mei Trotter Department: EXAM12 Room: 3B21 Gender: F Portable Machine Cutter: : 1935 Requested By: [id number] Order Number: [id number] Reading MD: Lucinda Lomeli Measurements Intervals [place] Rate: 85 P: 27 LA: 187 QRS: 23 QRSD: 93 T: 64 QT: 342 QTc: 407 Interpretive Statements Sinus rhythm Baseline artifact Electronically Signed On 06-08-2018 17:27:20 EDT by Lucinda Lomeli
[2018-06-08] MEDS ORDERED: Furosemide 20 MG/2 ML VIAL IVP ONE (19:35)
[2018-06-08] MEDS: Nystatin POWDER 30 GM BOTTLE TP SCH (20:11)
[2018-06-08] MEDS: Azithromycin 500 MG in D5% in Water 250 ML IVPB SCH (22:31)
[2018-06-09] MEDS: *HR* Enoxaparin 30 MG/0.3 ML SYRINGE SQ SCH (05:27)
[2018-06-09 08:35] LABS: Basophils % 0.1 %; Eosinophils # 0.1 K/mcL (0.0-0.6); Eosinophils % 0.8 %; Hematocrit 28.6 % (35.3-44.9); Hemoglobin 9.4 g/dL (11.5-15.4); Immature Granulocytes % 0.7 % (0-4); Lymphocytes # 0.8 K/mcL (0.6-4.6); Lymphocytes % 8.4 %; Mean Corpuscular HGB Conc 32.9 g/dL (31.6-35.5); Mean Corpuscular Hemoglobin 32.2 pg (28.0-33.3); Mean Corpuscular Volume 97.9 fL (83.0-100.0); Mean Platelet Volume 10.1 fL (9.4-12.4); Monocytes # 0.4 K/mcL (0.0-1.3); Monocytes % 4.3 %; Neutrophils # 7.6 K/mcL (1.6-8.9); Platelet Count 126 K/mcL (140-400); Red Blood Count 2.92 M/mcL (3.82-4.97); Red Cell Distribution Width 15.3 % (11.5-14.5); Segmented Neutrophils % 85.7 %
[2018-06-09 08:54] LABS: Calcium 7.8 mg/dL (8.6-10.3); Potassium 4.6 mEq/L (3.5-5.1)
[2018-06-09] MEDS: Nystatin POWDER 30 GM BOTTLE TP SCH ×2 (09:04→21:51)
[2018-06-09] MEDS: Nystatin SUSP 5 ML UD.LIQ PO SCH ×4 (09:05→21:50)
[2018-06-09] MEDS: Insulin LISPRO 300 UNITS/3 ML VIAL SQ SCH ×4 (09:05→21:52)
[2018-06-09] MEDS: cefTRIAXone 1,000 MG in Water for inj. (sterile) 20 ML 10 ML IVP SCH (09:06)
[2018-06-09] MEDS: Loratadine 10 MG TABLET PO SCH (09:07)
[2018-06-09] MEDS: Lactobacillus 1 EACH CAP.SPRINK PO SCH (09:07)
[2018-06-09] MEDS: Erythromycin OPTH Oint LEFT EYE SCH ×3 (09:07→21:50)
[2018-06-09] MEDS: Primidone 50 MG TABLET PO SCH (09:08)
[2018-06-09] MEDS: Cholecalciferol (D-3) 1,000 UNIT TABLET PO SCH (09:08)
[2018-06-09] MEDS: Cyanocobalamin (B-12) 1,000 MCG TABLET PO SCH (09:08)
[2018-06-09] MEDS: Gabapentin 300 MG CAPSULE PO SCH ×3 (09:08→21:48)
[2018-06-09] MEDS: Colchicine 0.6 MG TABLET PO SCH (09:08)
[2018-06-09] MEDS: predniSONE 5 MG TABLET PO SCH ×2 (09:08→21:47)
[2018-06-09] MEDS: Aspirin Enteric Coated 81 MG Tablet PO SCH (09:08)
[2018-06-09] MEDS: (Trospium Chloride [Trospium Chloride] 20 MG) PO SCH (09:37)
--- NOTE | 2018-06-09 09:48 | Internal Med Progress Note ---
Hospitalist Progress Note - Encounter Date of Encounter: 06/09/18 Time of Encounter: 09:46 - Subjective Interval History: Patient seen and examined at bedside complains of difficulty swallowing describes as if "she has a lump in her throat, burning" awaiting swallow evaluation - Exam Vitals: Temp Pulse Resp BP Pulse Ox 97.2 F L 91 18 114/57 99 06/09/18 07:30 06/09/18 07:30 06/09/18 07:30 06/09/18 07:30 06/09/18 07:30 Exam: General: Drowsy. Oriented x3. Obese Skin:Normal color, no rash, no lesions. Rash noted under left breast, erythematous and warm. HEENT:Pupils equal, round and reactive. Left eye red and edematous with drainage. Did note white patches on tongue Cardiovascular:Heart sounds distant. Normal S1 & S2, no rubs, murmurs or gallops. No JVD. Pulse regular. Lungs:Breath sounds decreased, no wheezes or crackles. Respirations slightly labored with no accessory muscle use. Abdomen:Soft, non-tender, no rigidity. Extremities:No deformity, no edema or tenderness, no joint swelling or clubbing. Neurological:Normal cognition and motor skills. Chronic generalized tremor noted. Pulses:Carotid and radial pulses normal +2. Rest of the physical exam is non contributory. - Assessment and Plan (1) Acute cystitis Current Visit: Yes Status: Acute Assessment and Plan: Due to Escherichia coli-urine culture sensitive to multiple antibiotics continue with Rocephin (2) Bacterial conjunctivitis of left eye Current Visit: Yes Status: Acute Assessment and Plan: Erythromycin ointment started in ER, will continue the same. (3) Cellulitis Current Visit: Yes Status: Acute Assessment and Plan: Start vancomycin. MRSA swab ordered. Monitor closely for sepsis. (4) Dehydration Current Visit: Yes Status: Acute Assessment and Plan: Zofran for nausea. Tolerating oral intake at this time Encourage oral intake. Repeat labs in a.m. (5) Diabetes mellitus Current Visit: Yes Status: Acute Assessment and Plan: Accucheck ACHS. Sliding scale insulin. Diabetic diet. Hold home diabetic medications. (6) Hyponatremia Current Visit: Yes Status: Acute Assessment and Plan: We will check urine studies suspect possible SIADH secondary to pneumonia. (7) Hypotension Current Visit: Yes Status: Acute Assessment and Plan: 1 patient did receive some Lasix we will decrease metoprolol for now will continue to monitor (8) Nausea & vomiting Current Visit: Yes Status: Acute Assessment and Plan: Zofran as needed. Encourage oral intake. (9) Odynophagia Current Visit: Yes Status: Acute Assessment and Plan: 1 patient is complaining of throat pain particularly when she swallows describes as if something is in her throat is burning. I did notice she had some white patches on her tongue. Order Magic mouthwash and she is to undergo a swallow evaluation per speech (10) PNA (pneumonia) Current Visit: Yes Status: Acute Assessment and Plan: 1 she is currently on 3 L nasal cannula baseline is 2 L nasal cannula we will continue to titrate oxygen to maintain sats greater than 90%. No wheezing noted patient is to undergo speech eval for swallow evaluation. Legionella strep pending we will obtain a sputum (11) Sepsis due to gram-negative UTI Current Visit: Yes Status: Acute Assessment and Plan: Currently on Rocephin and Zithromax and vancomycin she has both UTI as well as pneumonia. She has been accepted at [facility] and can be discharged when needed PT/OT for strengthening (12) Shortness of breath Current Visit: Yes Status: Acute Assessment and Plan: BIPAP ordered. Duoneb treatment continue as needed. Monitor I/O. Echocardiogram- LVEF 65%. Mild left ventricular diastolic dysfunction. Normal right ventricular structure and function. No significant valvular abnormality Unable to estimate RVSP due to lack of TR jet. Holding lasix for now dt hypotension - Time Spent with Patient Total time spent is greater than 50% in coordination of care (as documented) at patient's floor/unit and/or counseling patient: Internal Medicine: Result - Labs CBC & Chem 7: 06/09/18 08:11 06/09/18 08:11 Labs: Short CBC 06/08/18 06/09/18 Range/Units 11:02 08:11 WBC 12.0 H 8.9 (4.3-11.1) K/mcL Hgb 11.3 L 9.4 L D (11.5-15.4) g/dL Hct 35.4 28.6 L (35.3-44.9) % Plt Count 142 126 L (140-400) K/mcL Neutrophils # 10.7 H 7.6 (1.6-8.9) K/mcL BMP 06/08/18 06/09/18 11:02 08:11 Sodium 127 L 127 L Potassium 4.4 4.6 Chloride 95 L 96 L Carbon Dioxide 26 27 BUN 32 H 36 H Creatinine 1.27 H 1.14 Glucose 253 H 224 H Calcium 8.2 L 7.8 L Cardiac Enzymes 06/08/18 Range/Units 11:02 Troponin I 0.03 (< 0.04) ng/mL - ABG Interpretation ABG results: ABG ABG pH 7.41 pH Units (7.32-7.45) 06/08/18 17:01 ABG pCO2 32 mmHg (35-45) L 06/08/18 17:01 ABG pO2 143 mmHg (85-104) H 06/08/18 17:01 ABG O2 Saturation 99 % (95-98) H 06/08/18 17:01 - Impressions Impressions Chest CT 06/08/18 12:30 IMPRESSION: 1. Hypoinflated lungs and bilateral dependent atelectasis. 2. Increase in size of focal opacification in the right lower lobe, now measuring about 3 x 1.6 cm, previously 0.9 x 0.7 cm. This may represent focal pneumonia versus neoplasm. Short-term follow-up chest CT in approximately 2 months time is recommended. 3. Atherosclerotic disease and coronary artery disease. D/ / Kassandra Chong MD / Kassandra Chong MD Interpreting Provider: Kassandra Chong MD Soft Tissue Neck CT 06/08/18 12:30 IMPRESSION: No acute abnormality of the soft tissue structures of the neck within the limitations of a noncontrast exam.. D/ / Kalen Sanchez MD / Kalen Sanchez MD Interpreting Provider: Kalen Sanchez MD Consult Discharge Plan - Plan Referrals: [facility] [place],Claudy Morales MD [Primary Care Provider] - (3) Cellulitis Qualifiers: Site of cellulitis: trunk Site of cellulitis of trunk: chest wall Qualified Code(s): L03.313 - Cellulitis of chest wall (5) Diabetes mellitus Qualifiers: Diabetes mellitus type: type 2 Diabetes mellitus senior living insulin use: without senior living use Diabetes mellitus complication status: without complication Qualified Code(s): E11.9 - Type 2 diabetes mellitus without complications (7) Hypotension Qualifiers: Hypotension type: unspecified hypotension type Qualified Code(s): I95.9 - Hypotension, unspecified (8) Nausea & vomiting Qualifiers: Vomiting type: unspecified Vomiting Intractability: non-intractable Qualified Code(s): R11.2 - Nausea with vomiting, unspecified
[2018-06-09] MEDS: Magic Mouthwash 10 ML UD Cup PO SCH ×2 (13:41→17:20)
[2018-06-09] MEDS: Azithromycin 500 MG in D5% in Water 250 ML IVPB SCH (21:48)
[2018-06-10 05:47] LABS: BUN/Creatinine Ratio 34 (6-26); Blood Urea Nitrogen 32 mg/dL (8-23); Carbon Dioxide 24 mEq/L (23-29); Chloride 96 mEq/L (98-107); Glucose 258 mg/dL (70-105); Osmolality,Calculated 278 (280-300); Potassium 4.8 mEq/L (3.5-5.1); Sodium 126 mEq/L (136-145); eGFR For Non-African Americans 57 (> 60)
[2018-06-10] MEDS: *HR* Enoxaparin 30 MG/0.3 ML SYRINGE SQ SCH (06:01)
[2018-06-10 06:25] LABS: Basophils % 0.3 %; Eosinophils # 0.1 K/mcL (0.0-0.6); Eosinophils % 0.9 %; Hematocrit 28.3 % (35.3-44.9); Hemoglobin 9.1 g/dL (11.5-15.4); Immature Granulocytes % 0.5 % (0-4); Lymphocytes # 0.6 K/mcL (0.6-4.6); Lymphocytes % 7.5 %; Mean Corpuscular HGB Conc 32.2 g/dL (31.6-35.5); Mean Corpuscular Hemoglobin 31.4 pg (28.0-33.3); Mean Corpuscular Volume 97.6 fL (83.0-100.0); Mean Platelet Volume 10.7 fL (9.4-12.4); Monocytes # 0.4 K/mcL (0.0-1.3); Monocytes % 4.9 %; Neutrophils # 6.9 K/mcL (1.6-8.9); Platelet Count 138 K/mcL (140-400); Red Cell Distribution Width 14.9 % (11.5-14.5); Segmented Neutrophils % 85.9 %
--- NOTE | 2018-06-10 08:45 | Internal Med Progress Note ---
Hospitalist Progress Note - Encounter Date of Encounter: 06/10/18 Time of Encounter: 08:45 - Subjective Interval History: Patient seen and examined at bedside complains of difficulty swallowing describes as if "she has a lump in her throat, burning" - will obtain barium swallow - Exam Vitals: Temp Pulse Resp BP Pulse Ox 98.4 F 83 18 103/51 99 06/10/18 06:21 06/10/18 06:21 06/10/18 06:21 06/10/18 06:21 06/10/18 06:21 Exam: General: Drowsy. Oriented x3. Obese Skin:Normal color, no rash, no lesions. Rash noted under left breast, erythematous and warm. HEENT:Pupils equal, round and reactive. Left eye red and edematous with drainage. Did note white patches on tongue Cardiovascular:Heart sounds distant. Normal S1 & S2, no rubs, murmurs or gallops. No JVD. Pulse regular. Lungs:Breath sounds decreased, no wheezes or crackles. Respirations slightly labored with no accessory muscle use. Abdomen:Soft, non-tender, no rigidity. Extremities:No deformity, no edema or tenderness, no joint swelling or clubbing. Neurological:Normal cognition and motor skills. Chronic generalized tremor noted. Pulses:Carotid and radial pulses normal +2. Rest of the physical exam is non contributory. - Assessment and Plan (1) Acute cystitis Current Visit: Yes Status: Acute Assessment and Plan: Due to Escherichia coli-urine culture sensitive to multiple antibiotics continue with Rocephin day 3 (2) Bacterial conjunctivitis of left eye Current Visit: Yes Status: Acute Assessment and Plan: Erythromycin ointment started in ER, will continue the same. (3) Cellulitis Current Visit: Yes Status: Acute Assessment and Plan: Start vancomycin. MRSA swab ordered. Monitor closely for sepsis. (4) Dehydration Current Visit: Yes Status: Acute Assessment and Plan: Zofran for nausea. complains od difficulty swallowing -barium swallow and GI consult IVF as needed monitor labs (5) Diabetes mellitus Current Visit: Yes Status: Acute Assessment and Plan: Accucheck ACHS. Sliding scale insulin. Diabetic diet. Hold home diabetic medications. (6) Hyponatremia Current Visit: Yes Status: Acute Assessment and Plan: We will check urine studies suspect possible SIADh. (7) Hypotension Current Visit: Yes Status: Acute Assessment and Plan: 1 patient did receive some Lasix we will decrease metoprolol for now will continue to monitor (8) Nausea & vomiting Current Visit: Yes Status: Acute Assessment and Plan: improving Zofran as needed. Encourage oral intake. (9) Odynophagia Current Visit: Yes Status: Acute Assessment and Plan: 1 patient is complaining of throat pain particularly when she swallows describes as if something is in her throat is burning. I did notice she had some white patches on her tongue. Order Magic mouthwash and she is to undergo a swallow evaluation per speech (10) PNA (pneumonia) Current Visit: Yes Status: Acute Assessment and Plan: 1 she is currently on 3 L nasal cannula baseline is 2 L nasal cannula we will continue to titrate oxygen to maintain sats greater than 90%. No wheezing noted patient is to undergo speech eval for swallow evaluation. Legionella strep negative sputum negative Influenza negative (11) Sepsis due to gram-negative UTI Current Visit: Yes Status: Acute Assessment and Plan: Currently on Rocephin and Zithromax and vancomycin she has both UTI as well as pneumonia. She has been accepted at [facility] and can be discharged when needed PT/OT for strengthening (12) Shortness of breath Current Visit: Yes Status: Acute Assessment and Plan: BIPAP ordered. Duoneb treatment continue as needed. Monitor I/O. Echocardiogram- LVEF 65%. Mild left ventricular diastolic dysfunction. Normal right ventricular structure and function. No significant valvular abnormality Unable to estimate RVSP due to lack of TR jet. Holding lasix for now dt hypotension (13) Globus sensation Current Visit: Yes Status: Acute Assessment and Plan: Barium swallow speech eval Consult GI NPO after midnight for EGD in am - Time Spent with Patient Total time spent is greater than 50% in coordination of care (as documented) at patient's floor/unit and/or counseling patient: Internal Medicine: Result - Labs CBC & Chem 7: 06/10/18 06:08 06/10/18 04:21 Labs: Short CBC 06/10/18 Range/Units 06:08 WBC 8.0 (4.3-11.1) K/mcL Hgb 9.1 L (11.5-15.4) g/dL Hct 28.3 L (35.3-44.9) % Plt Count 138 L (140-400) K/mcL Neutrophils # 6.9 (1.6-8.9) K/mcL BMP 06/09/18 06/10/18 08:11 04:21 Sodium 127 L 126 L Potassium 4.6 4.8 Chloride 96 L 96 L Carbon Dioxide 27 24 BUN 36 H 32 H Creatinine 1.14 0.95 Glucose 224 H 258 H Calcium 7.8 L 8.0 L - ABG Interpretation ABG results: ABG ABG pH 7.41 pH Units (7.32-7.45) 06/08/18 17:01 ABG pCO2 32 mmHg (35-45) L 06/08/18 17:01 ABG pO2 143 mmHg (85-104) H 06/08/18 17:01 ABG O2 Saturation 99 % (95-98) H 06/08/18 17:01 Consult Discharge Plan - Plan Referrals: Claudy Ferguson MD [Primary Care Provider] - (3) Cellulitis Qualifiers: Site of cellulitis: trunk Site of cellulitis of trunk: chest wall Qualified Code(s): L03.313 - Cellulitis of chest wall (5) Diabetes mellitus Qualifiers: Diabetes mellitus type: type 2 Diabetes mellitus terminal system operator insulin use: without terminal system operator use Diabetes mellitus complication status: without complication Qualified Code(s): E11.9 - Type 2 diabetes mellitus without complications (7) Hypotension Qualifiers: Hypotension type: unspecified hypotension type Qualified Code(s): I95.9 - Hypotension, unspecified (8) Nausea & vomiting Qualifiers: Vomiting type: unspecified Vomiting Intractability: non-intractable Qualified Code(s): R11.2 - Nausea with vomiting, unspecified
[2018-06-10] MEDS: Magic Mouthwash 10 ML UD Cup PO SCH ×3 (08:52→16:35)
[2018-06-10] MEDS: Insulin LISPRO 300 UNITS/3 ML VIAL SQ SCH ×4 (08:52→21:12)
[2018-06-10] MEDS: Nystatin SUSP 5 ML UD.LIQ PO SCH ×4 (08:53→21:12)
[2018-06-10] MEDS: Cyanocobalamin (B-12) 1,000 MCG TABLET PO SCH (08:53)
[2018-06-10] MEDS: Lactobacillus 1 EACH CAP.SPRINK PO SCH (08:53)
[2018-06-10] MEDS: Colchicine 0.6 MG TABLET PO SCH (08:53)
[2018-06-10] MEDS: Primidone 50 MG TABLET PO SCH (08:54)
[2018-06-10] MEDS: Cholecalciferol (D-3) 1,000 UNIT TABLET PO SCH (08:54)
[2018-06-10] MEDS: predniSONE 5 MG TABLET PO SCH ×2 (08:54→21:13)
[2018-06-10] MEDS: Gabapentin 300 MG CAPSULE PO SCH ×3 (08:54→21:11)
[2018-06-10] MEDS: Loratadine 10 MG TABLET PO SCH (08:54)
[2018-06-10] MEDS: Aspirin Enteric Coated 81 MG Tablet PO SCH (08:55)
[2018-06-10] MEDS: cefTRIAXone 1,000 MG in Water for inj. (sterile) 20 ML 10 ML IVP SCH ×2 (08:55→13:55)
[2018-06-10] MEDS: Erythromycin OPTH Oint LEFT EYE SCH ×3 (09:02→21:12)
[2018-06-10] MEDS: Nystatin POWDER 30 GM BOTTLE TP SCH ×2 (13:10→21:13)
[2018-06-10] MEDS: Azithromycin 500 MG in D5% in Water 250 ML IVPB SCH (21:13)
[2018-06-11] MEDS: *HR* Enoxaparin 30 MG/0.3 ML SYRINGE SQ SCH (06:03)
[2018-06-11 06:13] LABS: Basophils % 0.2 %; Eosinophils # 0.1 K/mcL (0.0-0.6); Eosinophils % 1.4 %; Hematocrit 29.9 % (35.3-44.9); Hemoglobin 9.5 g/dL (11.5-15.4); Immature Granulocytes % 0.7 % (0-4); Lymphocytes # 0.6 K/mcL (0.6-4.6); Lymphocytes % 10.6 %; Mean Corpuscular HGB Conc 31.8 g/dL (31.6-35.5); Mean Corpuscular Hemoglobin 31.4 pg (28.0-33.3); Mean Corpuscular Volume 98.7 fL (83.0-100.0); Mean Platelet Volume 10.3 fL (9.4-12.4); Monocytes # 0.3 K/mcL (0.0-1.3); Neutrophils # 4.8 K/mcL (1.6-8.9); Platelet Count 148 K/mcL (140-400); Red Blood Count 3.03 M/mcL (3.82-4.97); Red Cell Distribution Width 14.9 % (11.5-14.5); Segmented Neutrophils % 82.1 %
[2018-06-11 06:32] LABS: BUN/Creatinine Ratio 24 (6-26); Blood Urea Nitrogen 18 mg/dL (8-23); Calcium 8.6 mg/dL (8.6-10.3); Carbon Dioxide 30 mEq/L (23-29); Chloride 95 mEq/L (98-107); Glucose 250 mg/dL (70-105); Osmolality,Calculated 276 (280-300); Potassium 4.5 mEq/L (3.5-5.1); Sodium 128 mEq/L (136-145); eGFR For Non-African Americans > 60 (> 60)
[2018-06-11] MEDS: Insulin LISPRO 300 UNITS/3 ML VIAL SQ SCH ×4 (08:39→21:37)
[2018-06-11] MEDS: cefTRIAXone 1,000 MG in Water for inj. (sterile) 20 ML 10 ML IVP SCH (08:39)
[2018-06-11] MEDS: Erythromycin OPTH Oint LEFT EYE SCH ×3 (08:40→21:36)
[2018-06-11] MEDS: Nystatin SUSP 5 ML UD.LIQ PO SCH ×4 (08:40→21:36)
[2018-06-11] MEDS: Magic Mouthwash 10 ML UD Cup PO SCH ×3 (08:40→19:12)
[2018-06-11] MEDS: Cyanocobalamin (B-12) 1,000 MCG TABLET PO SCH (10:59)
[2018-06-11] MEDS: Gabapentin 300 MG CAPSULE PO SCH ×3 (10:59→21:35)
[2018-06-11] MEDS: Lactobacillus 1 EACH CAP.SPRINK PO SCH (10:59)
[2018-06-11] MEDS: Cholecalciferol (D-3) 1,000 UNIT TABLET PO SCH (10:59)
[2018-06-11] MEDS: predniSONE 5 MG TABLET PO SCH ×2 (10:59→21:35)
[2018-06-11] MEDS: Primidone 50 MG TABLET PO SCH (10:59)
[2018-06-11] MEDS: Aspirin Enteric Coated 81 MG Tablet PO SCH (10:59)
[2018-06-11] MEDS: Nystatin POWDER 30 GM BOTTLE TP SCH ×2 (11:00→21:38)
[2018-06-11] MEDS: Loratadine 10 MG TABLET PO SCH (11:00)
[2018-06-11] MEDS: Colchicine 0.6 MG TABLET PO SCH (11:00)
--- NOTE | 2018-06-11 11:22 | Internal Med Progress Note ---
Hospitalist Progress Note - Encounter Date of Encounter: 06/11/18 Time of Encounter: 11:17 - Subjective Interval History: Patient seen and examined at bedside complains of difficulty swallowing describes - barium swallow completed- Question of pbkj-si-ybjudfgw luminal narrowing of the proximal esophagus just inferior to the level of the hypopharynx. - discussed with patient - NPO awaiting GI -EGD - Exam Vitals: Temp Pulse Resp BP Pulse Ox 98.2 F 85 18 133/82 100 06/11/18 06:06/11/18 06:06/11/18 06:06/11/18 06:06/11/18 06:26 Exam: General: Drowsy. Oriented x3. Obese Skin:Normal color, no rash, no lesions. Rash noted under left breast, erythematous and warm. HEENT:Pupils equal, round and reactive. Left eye red and edematous with drainage. Did note white patches on tongue Cardiovascular:Heart sounds distant. Normal S1 & S2, no rubs, murmurs or gallops. No JVD. Pulse regular. Lungs:Breath sounds decreased, no wheezes or crackles. Respirations slightly labored with no accessory muscle use. Abdomen:Soft, non-tender, no rigidity. Extremities:No deformity, no edema or tenderness, no joint swelling or clubbing. Neurological:Normal cognition and motor skills. Chronic generalized tremor noted. Pulses:Carotid and radial pulses normal +2. Rest of the physical exam is non contributory. - Assessment and Plan (1) Acute cystitis Current Visit: Yes Status: Acute Assessment and Plan: Due to Escherichia coli-urine culture sensitive to Rocephin she has received 3 days of antibiotic coverage (2) Bacterial conjunctivitis of left eye Current Visit: Yes Status: Acute Assessment and Plan: Erythromycin ointment started in ER, will continue the same. (3) Cellulitis Current Visit: Yes Status: Acute Assessment and Plan: Patient's right breast with erythema extending up to areola, tenderness to touch. Has been on Rocephin-nasal spot was positive for patient is diabetic.concern for MRSA-I did curbside infectious disease and will resume vancomycin. I will obtain an ultrasound right breast to rule out abscess. No white count and no fever at this time continue to monitor closely-consult infectious disease as needed (4) Dehydration Current Visit: Yes Status: Acute Assessment and Plan: Zofran for nausea. complains of difficulty swallowing -barium swallow and GI consult IVF as needed monitor labs (5) Diabetes mellitus Current Visit: Yes Status: Acute Assessment and Plan: Accucheck ACHS.-Blood sugars have been elevated in increase sliding scale to medium Sliding scale insulin. Diabetic diet. Hold home diabetic medications. (6) Hyponatremia Current Visit: Yes Status: Acute Assessment and Plan: . Patient appears to have chronic hyponatremia today's 128 suspectbe related to poor oral intake patient has been having difficulty swallowing. We will continue to monitor (7) Hypotension Current Visit: Yes Status: Acute Assessment and Plan: 1 blood pressure has improved we will continue to monitor anteriorly with home medications (8) Nausea & vomiting Current Visit: Yes Status: Acute Assessment and Plan: This is most likely related to possible esophageal stricture. Patient having difficulty swallowing. GI has been consulted in this to undergo EGD today (9) Odynophagia Current Visit: Yes Status: Acute Assessment and Plan: 1 patient is complaining of throat pain particularly when she swallows describes as if something is in her throat is burning. I did notice she had some white patches on her tongue. Order Magic mouthwash and she is to undergo a swallow evaluation per speech (10) PNA (pneumonia) Current Visit: Yes Status: Acute Assessment and Plan: 1 . Legionella strep negative sputum negative Influenza negative Chest CT dated 06/08 2018 MPRESSION: 1. Hypoinflated lungs and bilateral dependent atelectasis. 2. Increase in size of focal opacification in the right lower lobe, now measuring about 3 x 1.6 cm, previously 0.9 x 0.7 cm. This may represent focal pneumonia versus neoplasm. Short-term follow-up chest CT in approximately 2 months time is recommended. 3. Atherosclerotic disease and coronary artery disease. No white count or fever at this time no wheezing lungs sounds diminished Rocephin (day 6) azithromycin (day 4)-continue antibiotic coverage for 10 days Continue with oxygen currently on baseline oxygen 2 L (11) Sepsis due to gram-negative UTI Current Visit: Yes Status: Acute Assessment and Plan: Currently on Rocephin and Zithromax and vancomycin she has both UTI, cellulitis as well as pneumonia. Sepsis has resolved and we will monitor closely She has been accepted at [facility] and can be discharged when needed PT/OT for strengthening (12) Shortness of breath Current Visit: Yes Status: Acute Assessment and Plan: BIPAP ordered. Duoneb treatment continue as needed. Monitor I/O. Echocardiogram- LVEF 65%. Mild left ventricular diastolic dysfunction. Normal right ventricular structure and function. No significant valvular abnormality Unable to estimate RVSP due to lack of TR jet. Holding lasix for now dt hypotension Esophageal strictures may be contributing to difficulty breathing (13) Globus sensation Current Visit: Yes Status: Acute Assessment and Plan: Barium swallow completed 05/10/2018 Impression . Limited examination due to patient limited mobility. 2. Question of kjza-yh-zaarclzq luminal narrowing of the proximal esophagus just inferior to the level of the hypopharynx. Consult GI NPO after midnight for EGD today - Time Spent with Patient Total time spent is greater than 50% in coordination of care (as documented) at patient's floor/unit and/or counseling patient: Internal Medicine: Result - Labs CBC & Chem 7: 06/11/18 05:58 06/11/18 05:58 Labs: Short CBC 06/11/18 Range/Units 05:58 WBC 5.8 (4.3-11.1) K/mcL Hgb 9.5 L (11.5-15.4) g/dL Hct 29.9 L (35.3-44.9) % Plt Count 148 (140-400) K/mcL Neutrophils # 4.8 (1.6-8.9) K/mcL BMP 06/11/18 05:58 Sodium 128 L Potassium 4.5 Chloride 95 L Carbon Dioxide 30 H BUN 18 Creatinine 0.76 Glucose 250 H Calcium 8.6 - ABG Interpretation ABG results: ABG ABG pH 7.41 pH Units (7.32-7.45) 06/08/18 17:01 ABG pCO2 32 mmHg (35-45) L 06/08/18 17:01 ABG pO2 143 mmHg (85-104) H 06/08/18 17:01 ABG O2 Saturation 99 % (95-98) H 06/08/18 17:01 - Impressions Impressions Barium Swallow X-Ray 06/10/18 13:48 IMPRESSION: 1. Limited examination due to patient limited mobility. 2. Question of sifx-uz-mstdolep luminal narrowing of the proximal esophagus just inferior to the level of the hypopharynx. D/ / Kalen Sanchez MD / Kalen Sanchez MD Interpreting Provider: Kalen Sanchez MD Consult Discharge Plan - Plan Referrals: [facility] [place],Claudy Morales MD [Primary Care Provider] - (3) Cellulitis Qualifiers: Site of cellulitis: trunk Site of cellulitis of trunk: chest wall Qualified Code(s): L03.313 - Cellulitis of chest wall (5) Diabetes mellitus Qualifiers: Diabetes mellitus type: type 2 Diabetes mellitus [facility] insulin use: without vermin exterminator use Diabetes mellitus complication status: without complication Qualified Code(s): E11.9 - Type 2 diabetes mellitus without complications (7) Hypotension Qualifiers: Hypotension type: unspecified hypotension type Qualified Code(s): I95.9 - Hypotension, unspecified (8) Nausea & vomiting Qualifiers: Vomiting type: unspecified Vomiting Intractability: non-intractable Qualified Code(s): R11.2 - Nausea with vomiting, unspecified
--- NOTE | 2018-06-11 12:03 | Gastroenterology Consult Note ---
<Zackary Flores - Last Filed: 06/11/18 12:01> Date of Encounter: 06/11/18 Time of Encounter: 10:20 - Assessment and plan (1) Dysphagia Current Visit: Yes Status: Acute Assessment and plan: Patient feels like her food and medication get "stuck" in her esophagus. Barrium swallow shows questionable klel-zq-cqpzfvcg luminal narrowing of the proximal esophagus just inferior to the level of the hypopharynx. Plan for EGD today with possible dilation to r/o structural causes such as stricture, tumor,etc vs esophageal motility disorder. Keep patient NPO. Qualifiers: Dysphagia type: unspecified Qualified Code(s): R13.10 - Dysphagia, unspecified - Time Spent With Patient Total time spent is greater than 50% in coordination of care (as documented) at patient's floor/unit and/or counseling patient: GI History of Present Illness - Data of Consult Patient: new to practice Consult date: 06/11/18 Requesting Physician: Karen Mcdonald MD - Consult Narrative Reason for consult: Globus sensation History of present illness: Ms. Trotter is a 82 year old female with PMHx of CAD with stent, diabetes, COPD, generalized tremors, acid reflux, hypothyroidism, and osteoporosis who presents for multiple complaints including 2 day history of nausea, vomiting, fever ( highest reported 100.9), chills, generalized aches, increased dyspnea, urinary frequency, and foul smelling dark urine getting progressively worse. We have been consulted to evaluate her dysphagia. She began complaining of difficulty swallowing on 06/09 and decribed it as having "a lump" in her throat. CT neck shows no acute abnormality of the soft tissue structures of the neck. Barrium swallow shows questionable rpvb-qi-nbdjeacv luminal narrowing of the proximal esophagus just inferior to the level of the hypopharynx. Procedures: Colonoscopy 11/10/2017 Dr. Lazcano: Diverticulosis. EGD 05/16/2013 Dr. Boone: Large bleeding Lee Ann-Cardoza tear NSAIDs: ASA Anticoagulation: None Past Med Surg Social Fam HX - Past Medical History Medical history: asthma, diabetes Additional medical history: tremors Psychiatric history: anxiety, depression - Past Surgical History Surgical History: angioplasty/stent, cholecystectomy, hysterectomy, knee replacement, orthopedic, other Additional surgical history: rectocel, biopsy on both breast, broken finger - Social History Smoking Status: Never smoker Smokeless Tobacco Status: No Alcohol use: none Drug use: none - Family History Father Hx Family Cardiac Disorders: Yes Hx Family Endocrine Disorder: Yes (Diabetes) Mother Living Status: Hx Family Cardiac Disorders: Yes (CHF, Hypertension) Hx Family Endocrine Disorder: Yes (Diabetes) - Gastrointestinal Gastrointestinal: Present: as per HPI - Constitutional Constitutional: as per HPI - EENT Eyes: as per HPI Ears: Present: as per HPI Nose, mouth and throat: Present: as per HPI - Cardiovascular Cardiovascular ROS: Present: as per HPI - Respiratory Respiratory IM: Present: as per HPI - Genitourinary Genitourinary: Absent: change in color, Urinary frequency - Neurological ROS Neurological GI: Present: as per HPI - Hematologic/Lymphatic Hematologic/Lymphatic pediatric: Present: as per HPI - Musculoskeletal Musculoskeletal ROS GI: Present: as per HPI - Integumentary Integumentary GI: Present: as per HPI - Psychiatric ROS Psychiatric GI: Present: as per HPI - Endocrine Endocrine IM: Present: as per HPI - Constitutional Vitals: Temp Pulse Resp BP Pulse Ox 97.8 F 92 15 136/76 95 06/11/18 11:20 06/11/18 11:20 06/11/18 11:20 06/11/18 11:20 06/11/18 11:20 General appearance: Present: cooperative, A&O X 3, no acute distress, answers questions appropriately - Head Head exam: Present: atraumatic, normocephalic - Eye Eye exam: Present: normal appearance, sclera anicteric - ENT ENT exam: Present: mucous membranes dry - Neck Neck exam general surgery: Present: normal inspection, trachea midline - Respiratory Respiratory exam: Present: decreased breath sounds, CTAB. Absent: rales, rhonchi - Cardiovascular Cardiovascular exam: Present: RRR, +S1, +S2 - GI/Abdominal GI/Abdominal exam: Present: soft, no peritoneal signs. Absent: distended, firm , guarding, tenderness - Rectal Rectal exam: Present: deferred - Extremities Exam Extremities exam: Present: warm - Neurological Exam Neurological exam: Present: no focal deficits - Psychiatric Psychiatric exam: Present: normal affect, normal mood - Skin Skin exam: Present: dry, intact, normal color, warm Results - Labs CBC & Chem 7: 06/11/18 05:58 06/11/18 05:58 Labs: Last Result Calcium 8.6 mg/dL (8.6-10.3) 06/11/18 05:58 Troponin I 0.03 ng/mL (< 0.04) 06/08/18 11:02 Entire Visit Hgb 9.5 g/dL (11.5-15.4) L 06/11/18 05:58 Hct 29.9 % (35.3-44.9) L 06/11/18 05:58 - ABG ABG results: ABG ABG pH 7.41 pH Units (7.32-7.45) 06/08/18 17:01 ABG pCO2 32 mmHg (35-45) L 06/08/18 17:01 ABG pO2 143 mmHg (85-104) H 06/08/18 17:01 ABG O2 Saturation 99 % (95-98) H 06/08/18 17:01 - Impressions Impressions Barium Swallow X-Ray 06/10/18 13:48 IMPRESSION: 1. Limited examination due to patient limited mobility. 2. Question of zdvj-gj-keevxxsi luminal narrowing of the proximal esophagus just inferior to the level of the hypopharynx. D/ / Kalen Sanchez MD / Kalen Sanchez MD Interpreting Provider: Kalen Sanchez MD Consult Discharge Plan - Plan Referrals: Claudy montana MD [Primary Care Provider] - <Garrett Palacio - Last Filed: 06/15/18 00:48> Date of Encounter: 06/11/18 - Time Spent With Patient Total time spent is greater than 50% in coordination of care (as documented) at patient's floor/unit and/or counseling patient: GI History of Present Illness - Data of Consult Requesting Physician: Karen Mcdonald MD - Consult Narrative History of present illness: Ms. Trotter is a 82 year old female - Constitutional Vitals: Temp Pulse Resp BP Pulse Ox 98.9 F 85 17 156/71 97 06/14/18 23:43 06/14/18 23:43 06/14/18 23:43 06/14/18 23:43 06/14/18 23:43 Results - Labs CBC & Chem 7: 06/14/18 04:24 06/14/18 04:24 Labs: Last Result Calcium 8.4 mg/dL (8.6-10.3) L 06/14/18 04:24 Troponin I 0.03 ng/mL (< 0.04) 06/08/18 11:02 Entire Visit Hgb 8.4 g/dL (11.5-15.4) L 06/14/18 04:24 Hct 26.5 % (35.3-44.9) L 06/14/18 04:24 - ABG ABG results: ABG ABG pH 7.41 pH Units (7.32-7.45) 06/08/18 17:01 ABG pCO2 32 mmHg (35-45) L 06/08/18 17:01 ABG pO2 143 mmHg (85-104) H 06/08/18 17:01 ABG O2 Saturation 99 % (95-98) H 06/08/18 17:01 - Attending Attestation Agree with EGD and possible dilation for her dysphagia. I have personally performed a face to face evaluation on this patient. I have reviewed and agree with the care plan. History and Exam by me shows:
[2018-06-11] MEDS ORDERED: *HR* Propofol 200 MG/20 ML VIAL IVP ONE (13:56)
--- NOTE | 2018-06-11 14:15 | Anesthesia Evaluation PreOp ---
Date of Encounter: 06/11/18 Time of Encounter: 14:20 - Past History Planned Operation: EGD Cardiac History: HTN, Hyperlipidemia, Cardiac Stent (2013) Pulmonary History: Asthma, COPD SCIENTIFIC PUBLICATIONS EDITOR History: Other (Fibromyalgia) Other Medical History: Diabetes Type II, Thyroid, GERD, Other (Obese) Anesthesia History: No Prior Anesthetic Complications Alcohol Use: none Drug use: none Medications and Allergies Aspirin [Adult Low Dose Aspirin EC] 81 mg PO DAILY 10/17/15 [History] Gabapentin [Neurontin] 300 mg PO TID 10/17/15 [History] Lisinopril [Zestril] 5 mg PO BID 10/17/15 [History] Metoprolol [Lopressor] 50 mg PO BID 10/17/15 [History] Primidone [Mysoline] 50 mg PO DAILY 10/17/15 [History] Trospium Chloride 20 mg PO DAILY 10/17/15 [History] predniSONE [PredniSONE] 2.5 mg PO BID 10/17/15 [History] Citalopram Hydrobromide [Celexa] 20 mg PO DAILY 12/07/15 [History] Cyanocobalamin (Vitamin B-12) [Vitamin B12] 1,000 mcg PO DAILY 12/07/15 [History ] Ferrous Sulfate [Iron] 325 mg PO BID 12/07/15 [History] Loratadine [Claritin] 10 mg PO DAILY 12/07/15 [History] Pantoprazole Sodium [Protonix] 40 mg PO DAILY 12/22/15 [History] Atorvastatin [Lipitor] 40 mg PO HS 06/02/17 [History] Levothyroxine Sodium [Levoxyl] 50 mcg PO DAILY 06/02/17 [History] Saxagliptin HCl [Onglyza] 5 mg PO DAILY 06/02/17 [History] Cholecalciferol (Vitamin D3) [Vitamin D] 2,000 unit PO DAILY 07/16/17 [History] Colchicine [Colcrys] 0.6 mg PO DAILY 07/16/17 [History] Glimepiride [Amaryl] 1 mg PO DAILY 11/10/17 [History] Albuterol Sulfate [Ventolin Hfa] 2 puff IH Q4HR PRN #1 each 03/25/18 [Rx] Alendronate Sodium [Fosamax] 70 mg PO QWEEK 06/06/18 [History] Lactobacillus Acidophilus [Acidophilus] 1 cap PO DAILY 06/06/18 [History] 3 Allergy/AdvReac Type Severity Reaction Status Date / Time Amoxicillin Allergy See Verified 01/14/18 11:18 Comments clavulanic acid Allergy See Verified 01/14/18 11:18 [From Augmentin] Comments Penicillins Allergy See Verified 01/14/18 11:18 Comments Sulfa (Sulfonamide Allergy See Verified 01/14/18 11:18 Antibiotics) Comments topiramate Allergy See Verified 01/14/18 11:18 Comments nitrofurantoin AdvReac Vomiting Verified 01/14/18 11:18 [From Macrobid] nitroglycerin AdvReac Headache Verified 01/14/18 11:18 Oxycodone AdvReac Hallucinati Verified 01/14/18 11:18 ng - Meds/Allergy Pre-op Review Medications Reviewed: Yes Allergies Reviewed: Yes Beta Blockers on Current Med List: No Anesthesia Results - Labs 06/11/18 05:58 06/11/18 05:58 Anesthesia Exam O2 Sat Weight 92 kg O2 Sat by Pulse Oximetry 95 O2 Sat by Pulse Oximetry 100 O2 Sat by Pulse Oximetry 99 O2 Sat by Pulse Oximetry 99 O2 Sat by Pulse Oximetry 99 O2 Sat by Pulse Oximetry 93 O2 Sat by Pulse Oximetry 100 Vital Signs Temp Pulse Resp BP Pulse Ox 100.1 F H 83 18 141/88 94 06/06/18 11:24 06/06/18 11:24 06/06/18 11:24 06/06/18 11:24 06/06/18 11:24 Height: 5'1 Weight: 202 lbs NPO (# of Hours): MN Pain Scale: 0 - HEENT Pupil (Motor): Pupils equal, EOMI Mallampati: II Teeth: Edentulous Oral Opening: Greater than 3 - SCIENTIFIC PUBLICATIONS EDITOR LOC: Oriented SCI[employer] PUBLICATION[employer] EDITOR Motor: Normal RUE, Normal LUE, Normal RLE, Normal LLE, Normal Face SCI[employer] PUBLICATION[employer] Sensory: Normal: RUE, LUE, RLE, LLE, Face - Cardiac Rhythm: Regular Murmur: None JVD: No Carotid Bruit: No - Pulmonary Breath Sounds: bilateral Clear Respiratory Effort: Symmetrical Anesthesia Assess/Plan ASA Score: 3 (HTN COPD DM) Modified Manan Scale for Level of Consciousness: Cooperative, oriented, and tranquil Anesthetic Plan: MAC Monitoring Plan: Standard Monitors Recovery Plan: PACU (Discussed MAC, agrees to proceed)
[2018-06-11] MEDS ORDERED: Tetracaine/Benzocaine/Butamben 1 SPRAY AEROSOL MM ONE (14:50)
--- NOTE | 2018-06-11 15:00 | Anesthesia Evaluation Post Op ---
Date of Encounter: 06/11/18 Time of Encounter: 14:50 - Vital Signs Vital Signs: 3 Vital Signs Time 1450 BP 165/74 Pulse 96 Resp 16 O2 Sat 96 - Lungs Lungs: Clear Ascult./Percussion - Airway Airway: Non-obstructed - Cardiovascular Regular Rate - Mental Status Mental Status: Alert & Oriented, Answers Appropriately - Nausea Vomiting Nausea Vomiting: Not Present - Hydration Hydration: NPO, Has not voided - Discharge PostOp Status: Transfer Patient to floor
[2018-06-11] MEDS: Azithromycin 500 MG in D5% in Water 250 ML IVPB SCH (15:34)
[2018-06-11 15:39] LABS: Total Volume 24 Hour,Urine 0.61 Liters (0.60-1.60)
[2018-06-11 16:07] LABS: Sodium, Urine 23.5 mEq/L
[2018-06-12 05:38] LABS: Basophils % 0.4 %; Eosinophils # 0.2 K/mcL (0.0-0.6); Eosinophils % 4.3 %; Hematocrit 28.9 % (35.3-44.9); Immature Granulocytes % 1.1 % (0-4); Lymphocytes # 0.8 K/mcL (0.6-4.6); Lymphocytes % 17.6 %; Mean Corpuscular HGB Conc 31.1 g/dL (31.6-35.5); Mean Corpuscular Hemoglobin 31.1 pg (28.0-33.3); Mean Platelet Volume 10.5 fL (9.4-12.4); Monocytes # 0.4 K/mcL (0.0-1.3); Monocytes % 8.2 %; Neutrophils # 3.2 K/mcL (1.6-8.9); Platelet Count 164 K/mcL (140-400); Red Blood Count 2.89 M/mcL (3.82-4.97); Red Cell Distribution Width 14.9 % (11.5-14.5); Segmented Neutrophils % 68.4 %
[2018-06-12 05:48] LABS: BUN/Creatinine Ratio 17 (6-26); Blood Urea Nitrogen 11 mg/dL (8-23); Calcium 8.6 mg/dL (8.6-10.3); Carbon Dioxide 32 mEq/L (23-29); Chloride 97 mEq/L (98-107); Glucose 194 mg/dL (70-105); Osmolality,Calculated 277 (280-300); Potassium 4.1 mEq/L (3.5-5.1); Sodium 131 mEq/L (136-145); eGFR For Non-African Americans > 60 (> 60)
[2018-06-12] MEDS: *HR* Enoxaparin 40 MG/0.4 ML SYRINGE SQ SCH (06:07)
[2018-06-12] MEDS: Magic Mouthwash 10 ML UD Cup PO SCH ×3 (10:11→16:14)
[2018-06-12] MEDS: Insulin LISPRO 300 UNITS/3 ML VIAL SQ SCH ×4 (10:11→20:47)
[2018-06-12] MEDS: cefTRIAXone 1,000 MG in Water for inj. (sterile) 20 ML 10 ML IVP SCH (10:19)
[2018-06-12] MEDS: Cholecalciferol (D-3) 1,000 UNIT TABLET PO SCH (10:20)
[2018-06-12] MEDS: predniSONE 5 MG TABLET PO SCH ×2 (10:20→20:45)
[2018-06-12] MEDS: Gabapentin 300 MG CAPSULE PO SCH ×3 (10:20→20:46)
[2018-06-12] MEDS: Lactobacillus 1 EACH CAP.SPRINK PO SCH (10:21)
[2018-06-12] MEDS: Cyanocobalamin (B-12) 1,000 MCG TABLET PO SCH (10:21)
[2018-06-12] MEDS: Aspirin Enteric Coated 81 MG Tablet PO SCH (10:21)
[2018-06-12] MEDS: Erythromycin OPTH Oint LEFT EYE SCH ×3 (10:21→20:46)
[2018-06-12] MEDS: Primidone 50 MG TABLET PO SCH (10:21)
[2018-06-12] MEDS: Loratadine 10 MG TABLET PO SCH (10:21)
[2018-06-12] MEDS: Colchicine 0.6 MG TABLET PO SCH (10:22)
[2018-06-12] MEDS: Nystatin POWDER 30 GM BOTTLE TP SCH ×2 (10:23→20:48)
[2018-06-12] MEDS: Nystatin SUSP 5 ML UD.LIQ PO SCH ×4 (10:28→20:46)
[2018-06-12] MEDS: Azithromycin 500 MG in D5% in Water 250 ML IVPB SCH (12:20)
--- NOTE | 2018-06-12 13:07 | Internal Med Progress Note ---
Hospitalist Progress Note - Encounter Date of Encounter: 06/12/18 Time of Encounter: 13:05 - Subjective Interval History: She was seen and examined in the room, she just back from the ultrasound. Patient reported left eye conjunctivitis has improved and almost resolved. Diffuse dermatitis including bilateral breast and inguinal area have improved with topical antifungal medicine. Patient denies dysuria, urgency, or frequency. Patient also reported improved dysphagia. - Exam Vitals: Temp Pulse Resp BP Pulse Ox 97.8 F 75 18 131/77 98 06/12/18 11:34 06/12/18 11:34 06/12/18 11:34 06/12/18 11:34 06/12/18 11:34 Exam: PHYSICAL EXAMINATION: GENERAL APPEARANCE: The patient is alert, oriented and in no acute distress. HEENT: Head is normocephalic. The sinuses are nontender. Pupils are equal and reactive. The nares are patent. Oropharynx clear without lesions. NECK: Supple without lymphadenopathy. HEART: Regular rate and rhythm. LUNGS: No crackles or wheezes are heard. ABDOMEN: Soft, nontender, nondistended with good bowel sounds heard. Inguinal area is normal. EXTREMITIES: Without cyanosis, clubbing or edema. NEUROLOGICAL: Gross nonfocal. SKIN: Warm and dry without any rash. - Assessment and Plan (1) Bacterial conjunctivitis of left eye Current Visit: Yes Status: Acute Assessment and Plan: Erythromycin ointment started in ER, will continue the same. Improved. (2) Shortness of breath Current Visit: Yes Status: Acute Assessment and Plan: Chest x-ray showed possible pneumonia, patient received 5 days of IV azithromycin and the ceftriaxone. Respiratory status has improved. IV antibiotics will be changed to oral Cipro today. And antibiotics will concomitantly covers UTI. (3) Nausea & vomiting Current Visit: Yes Status: Acute Assessment and Plan: Patient had a EGD yesterday which showed mild esophagitis, Schatzki's ring, moderate gastritis, possible gastroparesis. We will continue nystatin oral solution, continue PPI, small frequent meals. (4) Cellulitis Current Visit: Yes Status: Acute Assessment and Plan: Patient's right breast with erythema extending up to areola, tenderness to touch. nasal spot was positive for patient is diabetic.concern for MRSA, MRI SS associated cellulitis was suspected, vancomycin IV was restarted yesterday. However, dermatological appearance is more consistent with fungal dermatitis. We will continue nystatin topical, due to the diffuse fungal infection, will add oral fluconazole as well. Awaiting ID consult. (5) Diabetes mellitus Current Visit: Yes Status: Acute Assessment and Plan: History of diabetes, patient also take low dose steroids as well. Blood sugar was poorly controlled, will add basal insulin with Levemir twice a day, continue insulin sliding scale. (6) Dehydration Current Visit: Yes Status: Acute Assessment and Plan: Push oral intake. (7) Hypotension Current Visit: Yes Status: Resolved (8) Hyponatremia Current Visit: Yes Status: Acute Assessment and Plan: Likely due to poor oral intake. (9) Sepsis due to gram-negative UTI Current Visit: Yes Status: Acute Assessment and Plan: Urine culture grew Escherichia coli, pansensitive to all the antibiotics, IV antibiotics changed to oral Levaquin. PT/OT for strengthening (10) PNA (pneumonia) Current Visit: Yes Status: Acute Assessment and Plan: She received 5 days of IV azithromycin and the ceftriaxone, antibiotics changed to Levaquin by mouth. (11) Odynophagia Current Visit: Yes Status: Acute Assessment and Plan: Continue oral oral nystatin, continue Magic mouthwash. EGD noted mild esophagitis, gastritis and Schatzki ring, status post dilation. Continue PPI. (12) Acute cystitis Current Visit: Yes Status: Acute Assessment and Plan: Antibiotics changed as above. (13) Globus sensation Current Visit: Yes Status: Acute DVT Prophylaxis: Lovenox - Time Spent with Patient Total time spent is greater than 50% in coordination of care (as documented) at patient's floor/unit and/or counseling patient: Greater than 35 minutes Plan of Care Discussed with: patient Internal Medicine: Result - Labs CBC & Chem 7: 06/12/18 04:50 06/12/18 04:50 Labs: Short CBC 06/12/18 Range/Units 04:50 WBC 4.7 (4.3-11.1) K/mcL Hgb 9.0 L (11.5-15.4) g/dL Hct 28.9 L (35.3-44.9) % Plt Count 164 (140-400) K/mcL Neutrophils # 3.2 (1.6-8.9) K/mcL BMP 06/12/18 04:50 Sodium 131 L Potassium 4.1 Chloride 97 L Carbon Dioxide 32 H BUN 11 Creatinine 0.66 Glucose 194 H Calcium 8.6 - ABG Interpretation ABG results: ABG ABG pH 7.41 pH Units (7.32-7.45) 06/08/18 17:01 ABG pCO2 32 mmHg (35-45) L 06/08/18 17:01 ABG pO2 143 mmHg (85-104) H 06/08/18 17:01 ABG O2 Saturation 99 % (95-98) H 06/08/18 17:01 - Impressions Impressions Breast Ultrasound 06/12/18 00:00 IMPRESSION: Normal sonographic evaluation of the lower right breast and axilla. No evident abscess. BIRADS: BIRADS - CATEGORY 1 Negative, no evidence of malignancy. Annual mammography recommended. Patient appears due for screening mammogram in 6 months. OVERALL ASSESSMENT - NEGATIVE A letter of notification will be sent to the patient regarding the results. [employer] recommends annual mammograms for women 40 years and older. D/ / Woo Nash MD / Woo Nash MD Interpreting Provider: Woo Nash MD Consult Discharge Plan - Plan [facility] [place] [facility] Care [facility] - (3) Nausea & vomiting Qualifiers: Vomiting type: unspecified Vomiting Intractability: non-intractable Qualified Code(s): R11.2 - Nausea with vomiting, unspecified (4) Cellulitis Qualifiers: Site of cellulitis: trunk Site of cellulitis of trunk: chest wall Qualified Code(s): L03.313 - Cellulitis of chest wall (5) Diabetes mellitus Qualifiers: Diabetes mellitus type: type 2 Diabetes mellitus prison insulin use: without terminal operator use Diabetes mellitus complication status: without complication Qualified Code(s): E11.9 - Type 2 diabetes mellitus without complications (7) Hypotension Qualifiers: Hypotension type: unspecified hypotension type Qualified Code(s): I95.9 - Hypotension, unspecified
[2018-06-12] MEDS ORDERED: levoFLOXacin 750 MG TABLET PO SCH (13:15)
[2018-06-12] MEDS: 0.9 % Sodium Chloride 1,000 ML IVC SCH (14:55)
[2018-06-12] MEDS: Fluconazole 100 MG TABLET PO SCH (14:55)
[2018-06-12] MEDS: MICONAZOLE NITRATE 57 GM TUBE TP SCH ×2 (14:58→20:46)
[2018-06-12] MEDS: Insulin DETEMIR 100 UNIT/ML X5UNITS SQ SCH (21:12)
[2018-06-13 05:11] LABS: Basophils % 0.7 %; Eosinophils # 0.1 K/mcL (0.0-0.6); Eosinophils % 2.5 %; Hematocrit 28.3 % (35.3-44.9); Hemoglobin 8.9 g/dL (11.5-15.4); Immature Granulocytes % 2.7 % (0-4); Lymphocytes # 0.9 K/mcL (0.6-4.6); Lymphocytes % 21.3 %; Mean Corpuscular HGB Conc 31.4 g/dL (31.6-35.5); Mean Corpuscular Hemoglobin 31.4 pg (28.0-33.3); Mean Platelet Volume 10.2 fL (9.4-12.4); Monocytes # 0.4 K/mcL (0.0-1.3); Monocytes % 9.2 %; Neutrophils # 2.6 K/mcL (1.6-8.9); Platelet Count 171 K/mcL (140-400); Red Blood Count 2.83 M/mcL (3.82-4.97); Red Cell Distribution Width 14.6 % (11.5-14.5); Segmented Neutrophils % 63.6 %
[2018-06-13] MEDS: *HR* Enoxaparin 40 MG/0.4 ML SYRINGE SQ SCH (05:24)
[2018-06-13 05:26] LABS: BUN/Creatinine Ratio 15 (6-26); Blood Urea Nitrogen 10 mg/dL (8-23); Calcium 8.6 mg/dL (8.6-10.3); Carbon Dioxide 31 mEq/L (23-29); Chloride 97 mEq/L (98-107); Glucose 188 mg/dL (70-105); Osmolality,Calculated 280 (280-300); Potassium 4.1 mEq/L (3.5-5.1); Sodium 133 mEq/L (136-145); eGFR For Non-African Americans > 60 (> 60)
[2018-06-13] MEDS: 0.9 % Sodium Chloride 1,000 ML IVC SCH ×2 (06:51→21:50)
[2018-06-13] MEDS: Insulin LISPRO 300 UNITS/3 ML VIAL SQ SCH ×4 (09:17→21:35)
[2018-06-13] MEDS: predniSONE 5 MG TABLET PO SCH ×2 (10:34→21:13)
[2018-06-13] MEDS: Primidone 50 MG TABLET PO SCH (10:34)
[2018-06-13] MEDS: Lactobacillus 1 EACH CAP.SPRINK PO SCH (10:34)
[2018-06-13] MEDS: Loratadine 10 MG TABLET PO SCH (10:34)
[2018-06-13] MEDS: Aspirin Enteric Coated 81 MG Tablet PO SCH (10:34)
[2018-06-13] MEDS: Gabapentin 300 MG CAPSULE PO SCH ×3 (10:34→21:12)
[2018-06-13] MEDS: Magic Mouthwash 10 ML UD Cup PO SCH ×3 (10:35→16:57)
[2018-06-13] MEDS: Fluconazole 100 MG TABLET PO SCH (10:35)
[2018-06-13] MEDS: Cholecalciferol (D-3) 1,000 UNIT TABLET PO SCH (10:35)
[2018-06-13] MEDS: Cyanocobalamin (B-12) 1,000 MCG TABLET PO SCH (10:35)
[2018-06-13] MEDS: Colchicine 0.6 MG TABLET PO SCH (10:39)
[2018-06-13] MEDS: Erythromycin OPTH Oint LEFT EYE SCH ×3 (11:12→21:13)
[2018-06-13] MEDS: Insulin DETEMIR 100 UNIT/ML X5UNITS SQ SCH ×2 (11:13→21:13)
[2018-06-13] MEDS: MICONAZOLE NITRATE 57 GM TUBE TP SCH ×2 (11:14→21:14)
[2018-06-13] MEDS: Nystatin SUSP 5 ML UD.LIQ PO SCH ×4 (11:15→21:14)
[2018-06-13] MEDS: Nystatin POWDER 30 GM BOTTLE TP SCH ×2 (11:15→21:14)
--- NOTE | 2018-06-13 11:45 | Internal Med Progress Note ---
Hospitalist Progress Note - Encounter Date of Encounter: 06/13/18 Time of Encounter: 11:43 - Subjective Interval History: She was seen and examined in the room, she just back from the ultrasound. Patient reported left eye conjunctivitis has improved and almost resolved. Diffuse dermatitis including bilateral breast and inguinal area have improved with topical antifungal medicine. Patient denies dysuria, urgency, or frequency. Patient also reported improved dysphagia. - Exam Vitals: Temp Pulse Resp BP Pulse Ox 97.4 F L 79 16 169/84 100 06/13/18 07:20 06/13/18 07:20 06/13/18 07:20 06/13/18 07:20 06/13/18 07:20 Exam: PHYSICAL EXAMINATION: GENERAL APPEARANCE: The patient is alert, oriented and in no acute distress. HEENT: Head is normocephalic. The sinuses are nontender. Pupils are equal and reactive. The nares are patent. Oropharynx clear without lesions. NECK: Supple without lymphadenopathy. HEART: Regular rate and rhythm. LUNGS: No crackles or wheezes are heard. ABDOMEN: Soft, nontender, nondistended with good bowel sounds heard. Inguinal area is normal. EXTREMITIES: Without cyanosis, clubbing or edema. NEUROLOGICAL: Gross nonfocal. SKIN: Warm and dry without any rash. - Assessment and Plan (1) Bacterial conjunctivitis of left eye Current Visit: Yes Status: Resolved (2) Shortness of breath Current Visit: Yes Status: Acute Assessment and Plan: Chest x-ray showed possible pneumonia, patient received 5 days of IV azithromycin and the ceftriaxone. Respiratory status has improved. IV antibiotics will be changed to oral Cipro today. And antibiotics will concomitantly covers UTI. (3) Nausea & vomiting Current Visit: Yes Status: Acute Assessment and Plan: Patient had a EGD yesterday which showed mild esophagitis, Schatzki's ring, moderate gastritis, possible gastroparesis. We will continue nystatin oral solution, continue PPI, small frequent meals. (4) Cellulitis Current Visit: Yes Status: Acute Assessment and Plan: Patient's right breast with erythema extending up to areola, tenderness to touch. nasal spot was positive for patient is diabetic.concern for MRSA, MRI SS associated cellulitis was suspected, vancomycin IV was restarted yesterday. However, dermatological appearance is more consistent with fungal dermatitis. We will continue nystatin topical, due to the diffuse fungal infection, will add oral fluconazole as well. (5) Diabetes mellitus Current Visit: Yes Status: Acute Assessment and Plan: History of diabetes, patient also take low dose steroids as well. Blood sugar was poorly controlled, will add basal insulin with Levemir twice a day, continue insulin sliding scale. (6) Dehydration Current Visit: Yes Status: Acute Assessment and Plan: Push oral intake. (7) Hypotension Current Visit: Yes Status: Resolved (8) Hyponatremia Current Visit: Yes Status: Acute Assessment and Plan: Likely due to poor oral intake. (9) Sepsis due to gram-negative UTI Current Visit: Yes Status: Resolved (10) PNA (pneumonia) Current Visit: Yes Status: Acute Assessment and Plan: She received 5 days of IV azithromycin and the ceftriaxone, antibiotics changed to Levaquin by mouth. (11) Odynophagia Current Visit: Yes Status: Acute Assessment and Plan: Continue oral oral nystatin, continue Magic mouthwash. EGD noted mild esophagitis, gastritis and Schatzki ring, status post dilation. Continue PPI. (12) Acute cystitis Current Visit: Yes Status: Acute Assessment and Plan: Antibiotics changed as above. (13) Globus sensation Current Visit: Yes Status: Acute DVT Prophylaxis: Lovenox - Time Spent with Patient Total time spent is greater than 50% in coordination of care (as documented) at patient's floor/unit and/or counseling patient: Greater than 35 minutes Plan of Care Discussed with: patient Internal Medicine: Result - Labs CBC & Chem 7: 06/13/18 04:45 06/13/18 04:45 Labs: Short CBC 06/13/18 Range/Units 04:45 WBC 4.0 L (4.3-11.1) K/mcL Hgb 8.9 L (11.5-15.4) g/dL Hct 28.3 L (35.3-44.9) % Plt Count 171 (140-400) K/mcL Neutrophils # 2.6 (1.6-8.9) K/mcL BMP 06/13/18 04:45 Sodium 133 L Potassium 4.1 Chloride 97 L Carbon Dioxide 31 H BUN 10 Creatinine 0.65 Glucose 188 H Calcium 8.6 - ABG Interpretation ABG results: ABG ABG pH 7.41 pH Units (7.32-7.45) 06/08/18 17:01 ABG pCO2 32 mmHg (35-45) L 06/08/18 17:01 ABG pO2 143 mmHg (85-104) H 06/08/18 17:01 ABG O2 Saturation 99 % (95-98) H 06/08/18 17:01 Consult Discharge Plan - Plan Referrals: Phyllis,Claudy Morales MD [Primary Care Provider] - (3) Nausea & vomiting Qualifiers: Vomiting type: unspecified Vomiting Intractability: non-intractable Qualified Code(s): R11.2 - Nausea with vomiting, unspecified (4) Cellulitis Qualifiers: Site of cellulitis: trunk Site of cellulitis of trunk: chest wall Qualified Code(s): L03.313 - Cellulitis of chest wall (5) Diabetes mellitus Qualifiers: Diabetes mellitus type: type 2 Diabetes mellitus terminal operator insulin use: without half-way use Diabetes mellitus complication status: without complication Qualified Code(s): E11.9 - Type 2 diabetes mellitus without complications (7) Hypotension Qualifiers: Hypotension type: unspecified hypotension type Qualified Code(s): I95.9 - Hypotension, unspecified
[2018-06-14 04:31] LABS: Basophils % 0.3 %; Eosinophils # 0.1 K/mcL (0.0-0.6); Eosinophils % 2.7 %; Hematocrit 26.5 % (35.3-44.9); Hemoglobin 8.4 g/dL (11.5-15.4); Immature Granulocytes % 3.5 % (0-4); Lymphocytes # 1.1 K/mcL (0.6-4.6); Lymphocytes % 29.4 %; Mean Corpuscular HGB Conc 31.7 g/dL (31.6-35.5); Mean Corpuscular Hemoglobin 31.7 pg (28.0-33.3); Mean Platelet Volume 10.2 fL (9.4-12.4); Monocytes # 0.3 K/mcL (0.0-1.3); Monocytes % 8.7 %; Platelet Count 173 K/mcL (140-400); Red Blood Count 2.65 M/mcL (3.82-4.97); Red Cell Distribution Width 14.5 % (11.5-14.5); Segmented Neutrophils % 55.4 %
[2018-06-14 04:50] LABS: BUN/Creatinine Ratio 12 (6-26); Blood Urea Nitrogen 7 mg/dL (8-23); Calcium 8.4 mg/dL (8.6-10.3); Carbon Dioxide 32 mEq/L (23-29); Chloride 98 mEq/L (98-107); Glucose 209 mg/dL (70-105); Osmolality,Calculated 282 (280-300); Potassium 3.8 mEq/L (3.5-5.1); Sodium 134 mEq/L (136-145); eGFR For Non-African Americans > 60 (> 60)
[2018-06-14] MEDS: *HR* Enoxaparin 40 MG/0.4 ML SYRINGE SQ SCH (06:02)
[2018-06-14] MEDS: Fluconazole 100 MG TABLET PO SCH (09:23)
[2018-06-14] MEDS: Loratadine 10 MG TABLET PO SCH (09:23)
[2018-06-14] MEDS: Lactobacillus 1 EACH CAP.SPRINK PO SCH (09:23)
[2018-06-14] MEDS: Cholecalciferol (D-3) 1,000 UNIT TABLET PO SCH (09:23)
[2018-06-14] MEDS: Cyanocobalamin (B-12) 1,000 MCG TABLET PO SCH (09:23)
[2018-06-14] MEDS: Gabapentin 300 MG CAPSULE PO SCH ×3 (09:24→22:14)
[2018-06-14] MEDS: Aspirin Enteric Coated 81 MG Tablet PO SCH (09:24)
[2018-06-14] MEDS: Primidone 50 MG TABLET PO SCH (09:25)
[2018-06-14] MEDS: Insulin DETEMIR 100 UNIT/ML X5UNITS SQ SCH ×2 (09:25→22:13)
[2018-06-14] MEDS: Magic Mouthwash 10 ML UD Cup PO SCH ×3 (09:27→16:02)
[2018-06-14] MEDS: predniSONE 5 MG TABLET PO SCH ×2 (09:27→22:15)
[2018-06-14] MEDS: Nystatin SUSP 5 ML UD.LIQ PO SCH ×4 (09:27→22:14)
[2018-06-14] MEDS: MICONAZOLE NITRATE 57 GM TUBE TP SCH ×2 (09:28→22:11)
[2018-06-14] MEDS: Erythromycin OPTH Oint LEFT EYE SCH ×3 (09:28→22:12)
[2018-06-14] MEDS: Nystatin POWDER 30 GM BOTTLE TP SCH (09:29)
[2018-06-14] MEDS: Colchicine 0.6 MG TABLET PO SCH (09:33)
--- NOTE | 2018-06-14 09:44 | Internal Med Progress Note ---
Hospitalist Progress Note - Encounter Date of Encounter: 06/14/18 Time of Encounter: 09:42 - Subjective Interval History: She was seen and examined in the room. Diffuse dermatitis including bilateral breast and inguinal area have improved with topical and oral antifungal medicine. Patient denies dysuria, urgency, or frequency. Patient also reported improved dysphagia. - Exam Vitals: Temp Pulse Resp BP Pulse Ox 97.9 F 79 15 159/70 98 06/14/18 07:19 06/14/18 07:19 06/14/18 07:19 06/14/18 07:19 06/14/18 07:19 Exam: PHYSICAL EXAMINATION: GENERAL APPEARANCE: The patient is alert, oriented and in no acute distress. HEENT: Head is normocephalic. The sinuses are nontender. Pupils are equal and reactive. The nares are patent. Oropharynx clear without lesions. NECK: Supple without lymphadenopathy. HEART: Regular rate and rhythm. LUNGS: No crackles or wheezes are heard. ABDOMEN: Soft, nontender, nondistended with good bowel sounds heard. Inguinal area is normal. EXTREMITIES: Without cyanosis, clubbing or edema. NEUROLOGICAL: Gross nonfocal. SKIN: Warm and dry without any rash. - Assessment and Plan (1) Bacterial conjunctivitis of left eye Current Visit: Yes Status: Resolved (2) Shortness of breath Current Visit: Yes Status: Acute Assessment and Plan: Chest x-ray showed possible pneumonia, patient received 5 days of IV azithromycin and the ceftriaxone. Respiratory status has improved. IV antibiotics will be changed to oral Levaquin. And antibiotics will concomitantly covers UTI. (3) Nausea & vomiting Current Visit: Yes Status: Acute Assessment and Plan: EGD showed mild esophagitis, Schatzki's ring, moderate gastritis, possible gastroparesis. We will continue nystatin oral solution, continue PPI, small frequent meals. (4) Cellulitis Current Visit: Yes Status: Acute Assessment and Plan: Patient's right breast with erythema extending up to areola, tenderness to touch. nasal spot was positive for MRSA, patient is diabetic. MRSA associated cellulitis was suspected, vancomycin IV was restarted yesterday. However, dermatological appearance is more consistent with fungal dermatitis. We will continue nystatin topical, due to the diffuse fungal infection, will add oral fluconazole as well. (5) Diabetes mellitus Current Visit: Yes Status: Acute Assessment and Plan: History of diabetes, patient also take low dose steroids as well. Blood sugar was poorly controlled, adjusted dose of Levemir twice a day, continue insulin sliding scale. (6) Dehydration Current Visit: Yes Status: Acute Assessment and Plan: Push oral intake. Continue IV fluid. (7) Hypotension Current Visit: Yes Status: Resolved (8) Hyponatremia Current Visit: Yes Status: Acute Assessment and Plan: Likely due to poor oral intake. Continue IV fluid. (9) Sepsis due to gram-negative UTI Current Visit: Yes Status: Resolved (10) PNA (pneumonia) Current Visit: Yes Status: Acute Assessment and Plan: She received 5 days of IV azithromycin and the ceftriaxone, antibiotics changed to Levaquin by mouth. (11) Odynophagia Current Visit: Yes Status: Acute Assessment and Plan: Continue oral oral nystatin, continue Magic mouthwash. EGD noted mild esophagitis, gastritis and Schatzki ring, status post dilation. Continue PPI. (12) Acute cystitis Current Visit: Yes Status: Acute Assessment and Plan: Antibiotics changed as above. (13) Globus sensation Current Visit: Yes Status: Acute DVT Prophylaxis: Lovenox - Time Spent with Patient Total time spent is greater than 50% in coordination of care (as documented) at patient's floor/unit and/or counseling patient: Greater than 35 minutes Plan of Care Discussed with: patient Internal Medicine: Result - Labs CBC & Chem 7: 06/14/18 04:24 06/14/18 04:24 Labs: Short CBC 06/14/18 Range/Units 04:24 WBC 3.7 L (4.3-11.1) K/mcL Hgb 8.4 L (11.5-15.4) g/dL Hct 26.5 L (35.3-44.9) % Plt Count 173 (140-400) K/mcL Neutrophils # 2.0 (1.6-8.9) K/mcL BMP 06/14/18 04:24 Sodium 134 L Potassium 3.8 Chloride 98 Carbon Dioxide 32 H BUN 7 L Creatinine 0.57 L Glucose 209 H Calcium 8.4 L - ABG Interpretation ABG results: ABG ABG pH 7.41 pH Units (7.32-7.45) 06/08/18 17:01 ABG pCO2 32 mmHg (35-45) L 06/08/18 17:01 ABG pO2 143 mmHg (85-104) H 06/08/18 17:01 ABG O2 Saturation 99 % (95-98) H 06/08/18 17:01 Consult Discharge Plan - Plan Referrals: Phyllis,Claudy Morales MD [Primary Care Provider] - (3) Nausea & vomiting Qualifiers: Vomiting type: unspecified Vomiting Intractability: non-intractable Qualified Code(s): R11.2 - Nausea with vomiting, unspecified (4) Cellulitis Qualifiers: Site of cellulitis: trunk Site of cellulitis of trunk: chest wall Qualified Code(s): L03.313 - Cellulitis of chest wall (5) Diabetes mellitus Qualifiers: Diabetes mellitus type: type 2 Diabetes mellitus half-way insulin use: without half-way use Diabetes mellitus complication status: without complication Qualified Code(s): E11.9 - Type 2 diabetes mellitus without complications (7) Hypotension Qualifiers: Hypotension type: unspecified hypotension type Qualified Code(s): I95.9 - Hypotension, unspecified
[2018-06-14] MEDS: 0.9 % Sodium Chloride 1,000 ML IVC SCH (10:58)
[2018-06-14] MEDS: Insulin LISPRO 300 UNITS/3 ML VIAL SQ SCH ×3 (11:06→16:12)
[2018-06-14] MEDS ORDERED: levoFLOXacin 750 MG TABLET PO SCH (12:00)
[2018-06-15] MEDS: Insulin LISPRO 300 UNITS/3 ML VIAL SQ SCH ×2 (00:10→08:32)
[2018-06-15] MEDS: Nystatin POWDER 30 GM BOTTLE TP SCH ×2 (00:12→08:31)
[2018-06-15] MEDS: 0.9 % Sodium Chloride 1,000 ML IVC SCH (01:47)
[2018-06-15 05:23] LABS: Basophils % 0.3 %; Eosinophils # 0.1 K/mcL (0.0-0.6); Eosinophils % 2.1 %; Hematocrit 28.1 % (35.3-44.9); Hemoglobin 8.9 g/dL (11.5-15.4); Immature Granulocytes % 4.4 % (0-4); Lymphocytes # 1.1 K/mcL (0.6-4.6); Lymphocytes % 27.8 %; Mean Corpuscular HGB Conc 31.7 g/dL (31.6-35.5); Mean Corpuscular Hemoglobin 31.9 pg (28.0-33.3); Mean Corpuscular Volume 100.7 fL (83.0-100.0); Monocytes # 0.3 K/mcL (0.0-1.3); Neutrophils # 2.2 K/mcL (1.6-8.9); Platelet Count 184 K/mcL (140-400); Red Blood Count 2.79 M/mcL (3.82-4.97); Red Cell Distribution Width 14.4 % (11.5-14.5); Segmented Neutrophils % 57.4 %
[2018-06-15 05:42] LABS: BUN/Creatinine Ratio 13 (6-26); Blood Urea Nitrogen 7 mg/dL (8-23); Calcium 8.5 mg/dL (8.6-10.3); Carbon Dioxide 31 mEq/L (23-29); Chloride 100 mEq/L (98-107); Glucose 149 mg/dL (70-105); Osmolality,Calculated 281 (280-300); Potassium 3.6 mEq/L (3.5-5.1); Sodium 135 mEq/L (136-145); eGFR For Non-African Americans > 60 (> 60)
[2018-06-15] MEDS: *HR* Enoxaparin 40 MG/0.4 ML SYRINGE SQ SCH (06:25)
[2018-06-15 07:21] VITALS: BP 151/78
[2018-06-15] MEDS: Gabapentin 300 MG CAPSULE PO SCH (08:29)
[2018-06-15] MEDS: Aspirin Enteric Coated 81 MG Tablet PO SCH (08:29)
[2018-06-15] MEDS: Fluconazole 100 MG TABLET PO SCH (08:29)
[2018-06-15] MEDS: Cholecalciferol (D-3) 1,000 UNIT TABLET PO SCH (08:29)
[2018-06-15] MEDS: Loratadine 10 MG TABLET PO SCH (08:29)
[2018-06-15] MEDS: predniSONE 5 MG TABLET PO SCH (08:30)
[2018-06-15] MEDS: Cyanocobalamin (B-12) 1,000 MCG TABLET PO SCH (08:30)
[2018-06-15] MEDS: Primidone 50 MG TABLET PO SCH (08:31)
[2018-06-15] MEDS: Lactobacillus 1 EACH CAP.SPRINK PO SCH (08:31)
[2018-06-15] MEDS: Colchicine 0.6 MG TABLET PO SCH (08:32)
[2018-06-15] MEDS: Insulin DETEMIR 100 UNIT/ML X5UNITS SQ SCH (08:42)
--- NOTE | 2018-06-15 10:50 | Discharge Summary ---
- NOTES TO OUTPATIENT PROVIDER Notes to Outpatient Provider: f/u with PCP within 2 weeks. Orders not resulted at time of discharge: Pending orders 06/10/18 22:00 Osmolality,Urine [UCHEM] Routine 06/11/18 14:45 Surgical Pathology [PTH] Routine Date of Encounter: 06/15/18 Time of Encounter: 10:48 - Discharge Diagnosis (1) Bacterial conjunctivitis of left eye Priority: Primary Status: Resolved (2) Shortness of breath Priority: Primary Status: Acute (3) Nausea & vomiting Priority: Primary Status: Acute Qualifiers: Vomiting type: unspecified Vomiting Intractability: non-intractable Qualified Code(s): R11.2 - Nausea with vomiting, unspecified (4) Cellulitis Priority: Primary Status: Acute Qualifiers: Site of cellulitis: trunk Site of cellulitis of trunk: chest wall Qualified Code(s): L03.313 - Cellulitis of chest wall (5) Diabetes mellitus Priority: Secondary Status: Acute Qualifiers: Diabetes mellitus type: type 2 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 use: without long-term use Diabetes mellitus complication status: without complication Qualified Code(s): E11.9 - Type 2 diabetes mellitus without complications (6) Dehydration Priority: Primary Status: Acute (7) Hypotension Priority: Primary Status: Resolved Qualifiers: Hypotension type: unspecified hypotension type Qualified Code(s): I95.9 - Hypotension, unspecified (8) Hyponatremia Priority: Primary Status: Acute (9) Sepsis due to gram-negative UTI Priority: Primary Status: Resolved (10) PNA (pneumonia) Priority: Primary Status: Suspected Qualifiers: Pneumonia type: due to unspecified organism Laterality: unspecified laterality Lung location: unspecified part of lung Qualified Code(s): J18.9 - Pneumonia, unspecified organism (11) Odynophagia Priority: Primary Status: Acute (12) Acute cystitis Priority: Primary Status: Acute Qualifiers: Hematuria presence: with hematuria Qualified Code(s): N30.01 - Acute cystitis with hematuria (13) Globus sensation Priority: Primary Status: Acute Hospital course: Ms. Trotter is a 82 year old female with past medical history significant for CAD with stent, diabetes, COPD, generalized tremors, acid reflux, hypothyroidism , and osteoporosis who presents for multiple complaints including 2 day history of nausea, vomiting, dysphagia, fever (highest reported 100.9), chills, generalized aches, increased dyspnea, urinary frequency, and foul smelling dark urine getting progressively worse. Has generalized aches but denies specific chest pain or abdominal pain at this time. No diarrhea or known sick contacts. Also complains of swelling and drainage of left eye without vision changes and fungal infection underneath her left breast for the same duration. Normally wears 2-3lpm nasal canula at home. Upon arrival, patient blood pressure was notably low, she also has fever, labs revealed a UTI, urosepsis was diagnosed. Chest x-ray was suspicious for pneumonia. Patient was placed on IV Rocephin and the azithromycin. Nausea and vomiting have improved with treatment. She underwent EGD which revealed mild esophagitis, Schatzki ring, moderate gastritis, possible gastroparesis. Esophageal dilation was performed during the procedure. He was started on PPI and oral nystatin, dysphagia has improved. He was also treated with topical antifungal medicine plus oral fluconazole, dermatitis beneath the breast and axilla, groin has much improved. Hemoglobin A1c is 8.9, patient was restarted on insulin, blood glucose fairly well controlled. Today, patient has finished 7 days antibiotics for UTI and pneumonia. Antibiotics has DC'd. Her vital signs were stable, and she is afebrile. Patient will be discharged to [facility] today. She was instructed to continue use topical nystatin and take oral fluconazole as prescribed. She was instructed to discontinue glipizide, continue to take insulin and other oral agent. She was also instructed to take extra salt due to chronic hyponatremia. She will continue to follow-up with PCP as needed. Discharge discussed with: patient, family Time spent discussing smoking cessation with patient: more than 10 minutes - Time Spent with Patient Total time spent providing and/or coordinating discharge services: Greater than 30 minutes - Discharge Medications Prescriptions: Fluconazole [Diflucan] 100 mg PO DAILY #7 tablet Insulin DETEMIR [Levemir] 8 unit SQ BID #1 bottle Nystatin POWDER [Nystop] 1 appl TP BID #5 bottle Home Medications: Aspirin [Adult Low Dose Aspirin EC] 81 mg PO DAILY 10/17/15 [History] Gabapentin [Neurontin] 300 mg PO TID 10/17/15 [History] Lisinopril [Zestril] 5 mg PO BID 10/17/15 [History] Metoprolol [Lopressor] 50 mg PO BID 10/17/15 [History] Primidone [Mysoline] 50 mg PO DAILY 10/17/15 [History] Trospium Chloride 20 mg PO DAILY 10/17/15 [History] predniSONE [PredniSONE] 2.5 mg PO BID 10/17/15 [History] Citalopram Hydrobromide [Celexa] 20 mg PO DAILY 12/07/15 [History] Cyanocobalamin (Vitamin B-12) [Vitamin B12] 1,000 mcg PO DAILY 12/07/15 [History ] Ferrous Sulfate [Iron] 325 mg PO BID 12/07/15 [History] Loratadine [Claritin] 10 mg PO DAILY 12/07/15 [History] Pantoprazole Sodium [Protonix] 40 mg PO DAILY 12/22/15 [History] Atorvastatin [Lipitor] 40 mg PO HS 06/02/17 [History] Levothyroxine Sodium [Levoxyl] 50 mcg PO DAILY 06/02/17 [History] Saxagliptin HCl [Onglyza] 5 mg PO DAILY 06/02/17 [History] Cholecalciferol (Vitamin D3) [Vitamin D3] 2,000 unit PO DAILY 07/16/17 [History] Colchicine [Colcrys] 0.6 mg PO DAILY 07/16/17 [History] Albuterol Sulfate [Ventolin Hfa] 2 puff IH Q4HR PRN #1 each 03/25/18 [Rx] Alendronate Sodium [Fosamax] 70 mg PO QWEEK 06/06/18 [History] Lactobacillus Acidophilus [Acidophilus] 1 cap PO DAILY 06/06/18 [History] Fluconazole [Diflucan] 100 mg PO DAILY #7 tablet 06/15/18 [Rx] Insulin DETEMIR [Levemir] 8 unit SQ BID #1 bottle 06/15/18 [Rx] Insulin LISPRO [HumaLOG] 0 units SQ HS vial 06/15/18 [Rx] Insulin LISPRO [HumaLOG] 0 units SQ TIDAC vial 06/15/18 [Rx] Nystatin POWDER [Nystop] 1 appl TP BID #5 bottle 06/15/18 [Rx] Allergies/Adverse Reactions: 3 Allergy/AdvReac Type Severity Reaction Status Date / Time Amoxicillin Allergy See Verified 01/14/18 11:18 Comments clavulanic acid Allergy See Verified 01/14/18 11:18 [From Augmentin] Comments Penicillins Allergy See Verified 01/14/18 11:18 Comments Sulfa (Sulfonamide Allergy See Verified 01/14/18 11:18 Antibiotics) Comments topiramate Allergy See Verified 01/14/18 11:18 Comments nitrofurantoin AdvReac Vomiting Verified 01/14/18 11:18 [From Macrobid] nitroglycerin AdvReac Headache Verified 01/14/18 11:18 Oxycodone AdvReac Hallucinati Verified 01/14/18 11:18 ng Date of admission: 06/06/18 16:04 Primary care physician: Claudy Ferguson MD Consults: 06/06/18 18:19 Consult to Gaming Department Head [CONS] Routine Reason for SW Consult: possible ECF placement 06/08/18 09:21 Consult to Occupational Therapy [CONS] Routine Comment: Evaluate, develop and implement POC Reason for Consult: WEAKNESS, DECONDITIONING, POSSIBLE PLACEMENT NEEDED Does patient have active BEDREST order?: No Is patient medically & hemodynamically stable?: Yes Consult to Physical Therapy [CONS] Routine Comment: Evaluate, develop and implement POC Reason for Consult: WEAKNESS, DECONDITIONING, POSSIBLE PLACEMENT NEEDED Does patient have active BEDREST order?: No Is patient medically & hemodynamically stable?: Yes 06/10/18 13:50 Consult to Gastroenterology [CONS] Routine Consulting Provider: Rodger Woody Reason for Consult: globus sensation Time Notified: 13:52 Call Completed: Yes 06/11/18 17:08 Consult to Wound Care [CONS] Routine Reason for Consult: Yeast infection Time Notified: 17:09 Call Completed: No Anticipated date of discharge: 06/15/18 - Constitutional Vitals: Temp Pulse Resp BP Pulse Ox 97.6 F 98 16 151/78 100 06/15/18 07:19 06/15/18 07:19 06/15/18 07:19 06/15/18 07:19 06/15/18 07:19 General appearance: Present: cooperative, A&O X 3, answers questions appropriately Exam: PHYSICAL EXAMINATION: GENERAL APPEARANCE: The patient is alert, oriented and in no acute distress. HEENT: Head is normocephalic. The sinuses are nontender. Pupils are equal and reactive. The nares are patent. Oropharynx clear without lesions. NECK: Supple without lymphadenopathy. HEART: Regular rate and rhythm. LUNGS: No crackles or wheezes are heard. ABDOMEN: Soft, nontender, nondistended with good bowel sounds heard. Inguinal area is normal. EXTREMITIES: Without cyanosis, clubbing or edema. NEUROLOGICAL: Gross nonfocal. SKIN: Warm and dry without any rash. - Patient Status Disposition: Transfer SNF Condition: Fair Functional capacity at discharge: independent ambulation Overall status at discharge: patient is progressing back to baseline - Discharge Instructions Follow Up With: Claudy Ferguson MD [Primary Care Provider] - - Diet and Activity Activity: increase activity as tolerated Diet: diabetic diet
--- NOTE | 2018-06-15 11:16 | Physician Discharge Referral ---
ExtendedCare Referral Info Transfer To: ECF/rehab Provider in Charge after Transfer: Other Institutional Level of Care: Skilled - Diagnosis (1) Bacterial conjunctivitis of left eye Priority: Primary Status: Resolved (2) Shortness of breath Priority: Primary Status: Acute (3) Nausea & vomiting Priority: Primary Status: Acute (4) Cellulitis Priority: Primary Status: Acute (5) Diabetes mellitus Priority: Secondary Status: Acute (6) Dehydration Priority: Primary Status: Acute (7) Hypotension Priority: Primary Status: Resolved (8) Hyponatremia Priority: Primary Status: Acute (9) Sepsis due to gram-negative UTI Priority: Primary Status: Resolved (10) PNA (pneumonia) Priority: Primary Status: Suspected (11) Odynophagia Priority: Primary Status: Acute (12) Acute cystitis Priority: Primary Status: Acute (13) Globus sensation Priority: Primary Status: Acute Prognosis: Fair Aware of Diagnosis: Patient, Family Aware of Prognosis: Patient, Family - Transfer Medications Prescriptions: Fluconazole [Diflucan] 100 mg PO DAILY #7 tablet Insulin DETEMIR [Levemir] 8 unit SQ BID #1 bottle Nystatin POWDER [Nystop] 1 appl TP BID #5 bottle Home Medications: Aspirin [Adult Low Dose Aspirin EC] 81 mg PO DAILY 10/17/15 [History] Gabapentin [Neurontin] 300 mg PO TID 10/17/15 [History] Lisinopril [Zestril] 5 mg PO BID 10/17/15 [History] Metoprolol [Lopressor] 50 mg PO BID 10/17/15 [History] Primidone [Mysoline] 50 mg PO DAILY 10/17/15 [History] Trospium Chloride 20 mg PO DAILY 10/17/15 [History] predniSONE [PredniSONE] 2.5 mg PO BID 10/17/15 [History] Citalopram Hydrobromide [Celexa] 20 mg PO DAILY 12/07/15 [History] Cyanocobalamin (Vitamin B-12) [Vitamin B12] 1,000 mcg PO DAILY 12/07/15 [History ] Ferrous Sulfate [Iron] 325 mg PO BID 12/07/15 [History] Loratadine [Claritin] 10 mg PO DAILY 12/07/15 [History] Pantoprazole Sodium [Protonix] 40 mg PO DAILY 12/22/15 [History] Atorvastatin [Lipitor] 40 mg PO HS 06/02/17 [History] Levothyroxine Sodium [Levoxyl] 50 mcg PO DAILY 06/02/17 [History] Saxagliptin HCl [Onglyza] 5 mg PO DAILY 06/02/17 [History] Cholecalciferol (Vitamin D3) [Vitamin D3] 2,000 unit PO DAILY 07/16/17 [History] Colchicine [Colcrys] 0.6 mg PO DAILY 07/16/17 [History] Albuterol Sulfate [Ventolin Hfa] 2 puff IH Q4HR PRN #1 each 03/25/18 [Rx] Alendronate Sodium [Fosamax] 70 mg PO QWEEK 06/06/18 [History] Lactobacillus Acidophilus [Acidophilus] 1 cap PO DAILY 06/06/18 [History] Fluconazole [Diflucan] 100 mg PO DAILY #7 tablet 06/15/18 [Rx] Insulin DETEMIR [Levemir] 8 unit SQ BID #1 bottle 06/15/18 [Rx] Insulin LISPRO [HumaLOG] 0 units SQ HS vial 06/15/18 [Rx] Insulin LISPRO [HumaLOG] 0 units SQ TIDAC vial 06/15/18 [Rx] Nystatin POWDER [Nystop] 1 appl TP BID #5 bottle 06/15/18 [Rx] Allergies/Adverse Reactions: 3 Allergy/AdvReac Type Severity Reaction Status Date / Time Amoxicillin Allergy See Verified 01/14/18 11:18 Comments clavulanic acid Allergy See Verified 01/14/18 11:18 [From Augmentin] Comments Penicillins Allergy See Verified 01/14/18 11:18 Comments Sulfa (Sulfonamide Allergy See Verified 01/14/18 11:18 Antibiotics) Comments topiramate Allergy See Verified 01/14/18 11:18 Comments nitrofurantoin AdvReac Vomiting Verified 01/14/18 11:18 [From Macrobid] nitroglycerin AdvReac Headache Verified 01/14/18 11:18 Oxycodone AdvReac Hallucinati Verified 01/14/18 11:18 ng - Respiratory Orders Smoking Cessation: Smoking cessation has been advised. For more information, call the [place] Tobacco Quit Line at 8-274-IKTN-NOW. - Advance Directives Living Will: Yes Power of Product Support Analyst for Health Care: Yes Code Status: Full Code - Mobility Orders Chair - Rehabiliation Orders Rehab Potential: Fair Rehab Orders: Evaluation for Physical Therapy, Evaluation for Occupational Therapy - Treatments Skin tear care topically daily PRN per policy CERTIFICATION: I certify that the transfer of the above named patient to an Extended Care Facility is necessary for the continuing treatment of the diagnosis listed. The above information is true and accurate reflection of patient's current condition. Confidential - Redisclosure prohibited without a patient's written consent.
[2018-06-15] MEDS ORDERED: Aminoglycoside Consult 1 EACH MC ONE (12:54)
== END 2018-06-15 12:55 ==
LOC: 3BNU 11:22 → EMEROOARM 11:22 → 3BNU 17:51
PROVIDERS: ADMIT Internal Medicine; ATTEND Internal Medicine
PROC: ENDOEDS (2018-06-11 14:00)

== ENCOUNTER 2019-09-09 07:26 | Inpatient (IN) ==
[2019-09-09] MEDS ORDERED: 0.9 % Sodium Chloride 500 ML IVC ONE ×2 (07:31→08:57)
[2019-09-09] MEDS ORDERED: Ondansetron 4 MG/2 ML VIAL IVP ONE (07:31)
[2019-09-09] MEDS ORDERED: Ondansetron 4 MG/2 ML VIAL ONE (07:36)
[2019-09-09 07:55] LABS: Basophils % 0.1 %; Eosinophils # 0.1 K/mcL (0.0-0.6); Eosinophils % 1.6 %; Hemoglobin 10.9 g/dL (11.5-15.4); Immature Granulocytes % 0.4 % (0-4); Lymphocytes # 0.6 K/mcL (0.6-4.6); Lymphocytes % 7.2 %; Mean Corpuscular HGB Conc 30.3 g/dL (31.6-35.5); Mean Corpuscular Volume 102.3 fL (83.0-100.0); Monocytes # 0.2 K/mcL (0.0-1.3); Monocytes % 2.9 %; Platelet Count 195 K/mcL (140-400); Red Blood Count 3.52 M/mcL (3.82-4.97); Red Cell Distribution Width 16.1 % (11.5-14.5); Segmented Neutrophils % 87.8 %
[2019-09-09 08:12] LABS: BUN/Creatinine Ratio 27 (6-26); Blood Urea Nitrogen 25 mg/dL (8-23); Calcium 9.1 mg/dL (8.6-10.3); Carbon Dioxide 30 mEq/L (23-29); Chloride 97 mEq/L (98-107); Glucose 215 mg/dL (70-105); Osmolality,Calculated 297 (280-300); Potassium 4.7 mEq/L (3.5-5.1); Sodium 138 mEq/L (136-145); Troponin I < 0.03 ng/mL (< 0.04); eGFR For African Americans > 60 (> 60); eGFR For Non-African Americans 58 (> 60)
[2019-09-09] MEDS ORDERED: Promethazine 12.5 MG in 0.9 % Sodium Chloride 50 ML IVPB PRN (08:30)
[2019-09-09] MEDS ORDERED: Ketorolac 15 MG/ML VIAL IVP ONE (08:55)
[2019-09-09 09:54] LABS: Bilirubin,Urine Negative (Negative); Blood,Urine Small (Negative); Clarity,Urine Clear (Clear); Color,Urine Yellow (Yellow); Glucose,Urine (UA) Normal (Normal); Ketones,Urine Negative (Negative); Leukocyte Esterase,Urine Trace (Negative); Nitrite,Urine Negative (Negative); Protein,Urine Negative (Neg-Trace); Urobilinogen,Urine Normal (Normal)
[2019-09-09 09:57] LABS: Bacteria,Urine None Seen per hpf (None-Few); Hyaline Casts,Urine None Seen per lpf (None-Few); RBC,Urine 15-30 per hpf (0-3); Squamous Epithelial Cell,Urine Many per lpf (None-Few)
[2019-09-09] MEDS ORDERED: Naloxone 0.4 MG/ML INJ IVP PRN (11:45)
[2019-09-09] MEDS ORDERED: Ringers Solution, Lactated 1,000 ML IVC SCH (11:45)
[2019-09-09] MEDS ORDERED: Metoclopramide 10 MG/2 ML VIAL IVP ONE (12:26)
[2019-09-09] MEDS: predniSONE 5 MG TABLET PO SCH (20:15)
[2019-09-09] MEDS ORDERED: Acetaminophen IV 1,000 MG/100 ML INFUS..BTL IVPB ONE (20:22)
[2019-09-09 21:37] LABS: Adenovirus Not Detected (Not Detect); Coronavirus 229E Not Detected (Not Detect); Coronavirus HKU1 Not Detected (Not Detect); Coronavirus NL63 Not Detected (Not Detect); Coronavirus OC43 Not Detected (Not Detect); Human Metapneumovirus Not Detected (Not Detect); Human Rhinovirus/Enterovirus DETECTED (Not Detect)
[2019-09-09 21:38] LABS: Bordetella Pertussis Not Detected (Not Detect); Chlamydophila pneumoniae Not Detected (Not Detect); Influenza A Subtype 2009 H1 Not Detected (Not Detect); Influenza A Untypeable Not Detected (Not Detect); Influenza B Not Detected (Not Detect); Mycoplasma pneumoniae Not Detected (Not Detect); Parainfluenza Virus 1 Not Detected (Not Detect); Parainfluenza Virus 2 Not Detected (Not Detect); Parainfluenza Virus 3 Not Detected (Not Detect); Parainfluenza Virus 4 Not Detected (Not Detect); Respiratory Syncytial Virus Not Detected (Not Detect)
[2019-09-09] MEDS ORDERED: D5% in Water 1,000 ML IVC PRN (23:04)
[2019-09-09] MEDS ORDERED: Dextrose Gel 15 GM/37.5 ML TUBE PO PRN ×2 (23:04)
[2019-09-09] MEDS ORDERED: *HR* Dextrose 50 % in Water (Syg) 50 ML SYRINGE IVP PRN (23:04)
[2019-09-09] MEDS: Insulin LISPRO 300 UNITS/3 ML VIAL SQ SCH (23:39)
[2019-09-10 06:02] LABS: Basophils % 0.2 %; Eosinophils % 0.4 %; Hematocrit 33.6 % (35.3-44.9); Hemoglobin 10.6 g/dL (11.5-15.4); Immature Granulocytes % 0.8 % (0-4); Lymphocytes # 0.5 K/mcL (0.6-4.6); Lymphocytes % 10.3 %; Mean Corpuscular HGB Conc 31.5 g/dL (31.6-35.5); Mean Corpuscular Hemoglobin 30.9 pg (28.0-33.3); Mean Platelet Volume 10.3 fL (9.4-12.4); Monocytes # 0.1 K/mcL (0.0-1.3); Monocytes % 2.2 %; Neutrophils # 4.4 K/mcL (1.6-8.9); Platelet Count 209 K/mcL (140-400); Red Blood Count 3.43 M/mcL (3.82-4.97); Red Cell Distribution Width 16.7 % (11.5-14.5); Segmented Neutrophils % 86.1 %; White Blood Count 5.1 K/mcL (4.3-11.1)
[2019-09-10 06:06] LABS: Calcium 7.7 mg/dL (8.6-10.3)
[2019-09-10] MEDS ORDERED: Levalbuterol Neb 1.25 MG/3 ML ONE (06:13)
[2019-09-10] MEDS: Levalbuterol Neb 1.25 MG/3 ML IH SCH ×4 (06:14→21:16)
[2019-09-10] MEDS: Insulin LISPRO 300 UNITS/3 ML VIAL SQ SCH ×4 (09:51→20:53)
[2019-09-10] MEDS: Lactobacillus 1 EACH CAP.SPRINK PO SCH (09:53)
[2019-09-10] MEDS: Primidone 50 MG TABLET PO SCH (09:53)
[2019-09-10] MEDS: predniSONE 5 MG TABLET PO SCH ×2 (09:53→20:53)
[2019-09-10] MEDS: Aspirin Enteric Coated 81 MG Tablet PO SCH (09:57)
[2019-09-10] MEDS ORDERED: Acetaminophen 325 MG TABLET PO PRN (11:53)
[2019-09-10] MEDS ORDERED: Ertapenem 1,000 MG in 0.9 % Sodium Chloride Mini Bag 100 ML IVPB SCH (14:00)
[2019-09-10] MEDS ORDERED: Piperacillin/Tazobactam 3.375 GM in 0.9 % Sodium Chloride Mini Bag 100 ML IVPB SCH (16:00)
[2019-09-10] MEDS ORDERED: 0.9 % Sodium Chloride 1,000 ML ONE (17:53)
[2019-09-10] MEDS ORDERED: 0.9 % Sodium Chloride 1,000 ML IVC SCH (18:00)
[2019-09-10] MEDS: Insulin DETEMIR 100 UNIT/ML X5UNITS SQ SCH (20:57)
[2019-09-10] MEDS ORDERED: Acetaminophen 325 MG TABLET PO ONE (22:01)
[2019-09-11] MEDS: Levalbuterol Neb 1.25 MG/3 ML IH SCH ×4 (03:48→22:39)
[2019-09-11] MEDS ORDERED: Ertapenem 1,000 MG in 0.9 % Sodium Chloride Mini Bag 100 ML IVPB SCH (09:00)
[2019-09-11] MEDS: predniSONE 5 MG TABLET PO SCH (09:56)
[2019-09-11] MEDS: Insulin DETEMIR 100 UNIT/ML X5UNITS SQ SCH ×2 (09:57→20:41)
[2019-09-11] MEDS: Lactobacillus 1 EACH CAP.SPRINK PO SCH (09:57)
[2019-09-11] MEDS: Primidone 50 MG TABLET PO SCH (09:57)
[2019-09-11] MEDS: Aspirin Enteric Coated 81 MG Tablet PO SCH (10:02)
[2019-09-11] MEDS: Insulin LISPRO 300 UNITS/3 ML VIAL SQ SCH ×4 (10:02→20:41)
[2019-09-11] MEDS: MethylPREDNISolone 40 MG/ML VIAL IVP SCH (17:44)
[2019-09-11 18:34] LABS: BUN/Creatinine Ratio 22 (6-26); Blood Urea Nitrogen 16 mg/dL (8-23); Calcium 8.2 mg/dL (8.6-10.3); Carbon Dioxide 25 mEq/L (23-29); Chloride 100 mEq/L (98-107); Glucose 153 mg/dL (70-105); Magnesium 1.9 mg/dL (1.6-2.6); Osmolality,Calculated 280 (280-300); Phosphorous 1.8 mg/dL (2.7-4.5); Potassium 4.1 mEq/L (3.5-5.1); Sodium 133 mEq/L (136-145); eGFR For African Americans > 60 (> 60); eGFR For Non-African Americans > 60 (> 60)
[2019-09-12] MEDS: Levalbuterol Neb 1.25 MG/3 ML IH SCH ×4 (04:30→22:22)
[2019-09-12] MEDS: MethylPREDNISolone 40 MG/ML VIAL IVP SCH ×2 (06:01→17:37)
[2019-09-12] MEDS: Lactobacillus 1 EACH CAP.SPRINK PO SCH (09:20)
[2019-09-12] MEDS: Aspirin Enteric Coated 81 MG Tablet PO SCH (09:20)
[2019-09-12] MEDS: Insulin LISPRO 300 UNITS/3 ML VIAL SQ SCH ×4 (09:21→21:07)
[2019-09-12] MEDS: Insulin DETEMIR 100 UNIT/ML X5UNITS SQ SCH ×2 (09:21→21:13)
[2019-09-12] MEDS: Primidone 50 MG TABLET PO SCH (09:21)
[2019-09-12] MEDS: *HR* Heparin 5,000 UNIT/ML VIAL SQ SCH (17:37)
[2019-09-13] MEDS: Levalbuterol Neb 1.25 MG/3 ML IH SCH ×4 (03:46→22:14)
[2019-09-13] MEDS: *HR* Heparin 5,000 UNIT/ML VIAL SQ SCH ×2 (06:36→17:44)
[2019-09-13] MEDS: Aspirin Enteric Coated 81 MG Tablet PO SCH (07:49)
[2019-09-13] MEDS: Insulin DETEMIR 100 UNIT/ML X5UNITS SQ SCH (07:49)
[2019-09-13] MEDS: Lactobacillus 1 EACH CAP.SPRINK PO SCH (07:50)
[2019-09-13] MEDS: predniSONE 20 MG TABLET PO SCH (07:50)
[2019-09-13] MEDS: Primidone 50 MG TABLET PO SCH (07:50)
[2019-09-13] MEDS: Insulin LISPRO 300 UNITS/3 ML VIAL SQ SCH ×6 (07:51→21:11)
[2019-09-13 08:42] LABS: BUN/Creatinine Ratio 32 (6-26); Blood Urea Nitrogen 25 mg/dL (8-23); Calcium 8.6 mg/dL (8.6-10.3); Carbon Dioxide 26 mEq/L (23-29); Chloride 100 mEq/L (98-107); Glucose 253 mg/dL (70-105); Magnesium 2.1 mg/dL (1.6-2.6); Osmolality,Calculated 291 (280-300); Phosphorous 2.8 mg/dL (2.7-4.5); Potassium 4.4 mEq/L (3.5-5.1); Sodium 134 mEq/L (136-145); eGFR For African Americans > 60 (> 60); eGFR For Non-African Americans > 60 (> 60)
[2019-09-13] MEDS ORDERED: NON-FORMULARY MEDICATION 1 EACH EACH (Alendronate Sodium [Fosamax] 70 MG) PO SCH (18:16)
[2019-09-13] MEDS ORDERED: Insulin DETEMIR 100 UNIT/ML X5UNITS SQ SCH (21:00)
[2019-09-14] MEDS: Levalbuterol Neb 1.25 MG/3 ML IH SCH (04:35)
[2019-09-14] MEDS: *HR* Heparin 5,000 UNIT/ML VIAL SQ SCH (05:54)
[2019-09-14] MEDS ORDERED: Levalbuterol Neb 1.25 MG/3 ML IH PRN (07:54)
[2019-09-14] MEDS: Insulin LISPRO 300 UNITS/3 ML VIAL SQ SCH ×4 (08:07→12:00)
[2019-09-14] MEDS: Aspirin Enteric Coated 81 MG Tablet PO SCH (08:08)
[2019-09-14] MEDS: Lactobacillus 1 EACH CAP.SPRINK PO SCH (08:08)
[2019-09-14] MEDS: Primidone 50 MG TABLET PO SCH (08:09)
[2019-09-14] MEDS: predniSONE 20 MG TABLET PO SCH (08:09)
[2019-09-14] MEDS ORDERED: Insulin DETEMIR 100 UNIT/ML X5UNITS SQ SCH (09:00)
[2019-09-14 10:32] VITALS: BP 146/77
== END 2019-09-14 14:05 | DRG 202 ==
LOC: 3ANU 07:26 → EMEROOARM 07:26 → SUATTDRO 11:27 → 3ANU 12:30
PROVIDERS: ADMIT Internal Medicine; ATTEND Internal Medicine

== ENCOUNTER 2022-06-05 06:03 | Observation (INO) ==
[2022-06-05] MEDS ORDERED: Ondansetron 4 MG/2 ML VIAL ONE (06:19)
[2022-06-05] MEDS ORDERED: 0.9 % Sodium Chloride 1,000 ML ONE (06:19)
[2022-06-05 06:22] LABS: Basophils % 0.3 %; Eosinophils # 0.1 K/mcL (0.0-0.6); Eosinophils % 1.3 %; Hematocrit 34.9 % (35.3-44.9); Hemoglobin 11.1 g/dL (11.5-15.4); Immature Granulocytes % 0.4 % (0-4); Lymphocytes # 1.2 K/mcL (0.6-4.6); Lymphocytes % 17.4 %; Mean Corpuscular HGB Conc 31.8 g/dL (31.6-35.5); Mean Corpuscular Hemoglobin 30.5 pg (28.0-33.3); Mean Corpuscular Volume 95.9 fL (83.0-100.0); Mean Platelet Volume 9.3 fL (9.4-12.4); Monocytes # 0.6 K/mcL (0.0-1.3); Monocytes % 8.9 %; Neutrophils # 5.1 K/mcL (1.6-8.9); Platelet Count 159 K/mcL (140-400); Red Blood Count 3.64 M/mcL (3.82-4.97); Red Cell Distribution Width 15.1 % (11.5-14.5); Segmented Neutrophils % 71.7 %; White Blood Count 7.1 K/mcL (4.3-11.1)
[2022-06-05] MEDS ORDERED: 0.9 % Sodium Chloride 1,000 ML IVC ONE ×2 (06:38→06:39)
[2022-06-05] MEDS ORDERED: Ondansetron 4 MG/2 ML VIAL IVP ONE ×2 (06:38→06:44)
[2022-06-05 06:45] LABS: BUN/Creatinine Ratio 15 (6-26); Blood Urea Nitrogen 15 mg/dL (8-23); Calcium 8.8 mg/dL (8.6-10.3); Carbon Dioxide 28 mEq/L (23-29); Chloride 96 mEq/L (98-107); Glucose 183 mg/dL (70-105); Osmolality,Calculated 276 (280-300); Potassium 4.1 mEq/L (3.5-5.1); Sodium 130 mEq/L (136-145)
[2022-06-05 07:02] LABS: Troponin I < 0.03 ng/mL (< 0.04)
[2022-06-05 07:03] LABS: Alanine Aminotransferase 9 Units/L (7-52); Albumin 3.4 g/dL (3.5-5.7); Albumin/Globulin Ratio 0.9 (1.1-2.2); Alkaline Phosphatase 68 Units/L (34-104); Aspartate Amino Transferase 13 Units/L (13-39); Bilirubin,Direct 0.2 mg/dL (0.0-0.2); Bilirubin,Indirect 0.4 mg/dL (0.0-1.0); Bilirubin,Total 0.6 mg/dL (0.3-1.0); Globulin 3.6 g/dL (2.4-3.5); Lipase 30 Units/L (11-82)
[2022-06-05 07:37] LABS: Amorphous Sediment,Urine Few per hpf (None-Few); Bacteria,Urine Few per hpf (None-Few); Bilirubin,Urine Negative (Negative); Blood,Urine Negative (Negative); Clarity,Urine Turbid (Clear); Color,Urine Light-Yellow (Yellow); Glucose,Urine (UA) Normal (Normal); Hyaline Casts,Urine Few per lpf (None Seen); Ketones,Urine Negative (Negative); Leukocyte Esterase,Urine Moderate (Negative); Mucus,Urine Few per lpf (None-Few); Nitrite,Urine Negative (Negative); Protein,Urine 30 mg/dL (Neg-Trace); Specific Gravity,Urine 1.017 (1.010-1.025); Squamous Epithelial Cell,Urine Moderate per hpf (None-Few); Urobilinogen,Urine Normal (Normal); WBC,Urine 50-100 per hpf (0-3)
[2022-06-05] MEDS ORDERED: Iopamidol - 370 500 ML MLS IVP ONE (08:21)
[2022-06-05] MEDS ORDERED: Azithromycin 500 MG in 0.9 % Sodium Chloride 250 ML IVPB ONE (08:37)
[2022-06-05] MEDS ORDERED: cefTRIAXone 2,000 MG in 0.9 % Sodium Chloride 20 ML IVP SCH (09:00)
[2022-06-05] MEDS ORDERED: Ondansetron 4 MG/2 ML VIAL IVP PRN (10:52)
[2022-06-05] MEDS ORDERED: Naloxone 0.4 MG/ML INJ IVP PRN (10:52)
[2022-06-05] MEDS ORDERED: cefTRIAXone 1,000 MG in Water for inj. (sterile) 10 ML IVP SCH (11:00)
[2022-06-05] MEDS ORDERED: *HR* Dextrose 50 % in Water (Syg) 50 ML SYRINGE IVP PRN (11:04)
[2022-06-05] MEDS ORDERED: Dextrose Gel 15 GM/37.5 ML TUBE PO PRN ×2 (11:04)
[2022-06-05] MEDS ORDERED: D5% in Water 1,000 ML IVC PRN (11:04)
[2022-06-05 11:40] LABS: Magnesium 1.8 mg/dL (1.6-2.6)
[2022-06-05 12:06] LABS: Ferritin 492 ng/mL (10-120)
[2022-06-05 13:09] LABS: % Iron Saturation 15 % (15-50); Iron 37 mcg/dL (50-170); Transferrin 181 mg/dL (203-362)
[2022-06-05 13:21] LABS: Influenza A PCR Negative (Negative); Influenza B PCR Negative (Negative); Resp. Syncytial Virus PCR Negative (Negative)
[2022-06-05 13:22] LABS: SARS-CoV-2 by PCR (In House) Positive (Negative)
[2022-06-05] MEDS: Ipratropium 1 PUFF INHALER IH SCH ×4 (14:20→23:52)
[2022-06-05] MEDS: Insulin LISPRO 300 UNITS/3 ML VIAL SUBQ SCH ×2 (14:20→19:40)
[2022-06-05 14:51] LABS: Estimated Average Glucose 143 mg/dl; Hemoglobin A1C 6.6 %
[2022-06-05] MEDS: Acetaminophen 325 MG TABLET PO PRN (16:49)
[2022-06-05] MEDS ORDERED: *HR* Heparin 5,000 UNIT/ML VIAL SQ SCH (18:00)
[2022-06-05] MEDS: Benzonatate 100 MG CAPSULE PO PRN (21:01)
[2022-06-06] MEDS: Insulin LISPRO 300 UNITS/3 ML VIAL SUBQ SCH ×4 (00:19→17:34)
[2022-06-06] MEDS: Acetaminophen 325 MG TABLET PO PRN ×2 (00:20→17:41)
[2022-06-06] MEDS ORDERED: hydrOXYzine pamoate 25 MG CAPSULE PO PRN (00:32)
[2022-06-06] MEDS: Ipratropium 1 PUFF INHALER IH SCH ×5 (04:18→20:21)
[2022-06-06 04:49] LABS: Basophils % 0.2 %; Eosinophils % 0.2 %; Hematocrit 31.4 % (35.3-44.9); Hemoglobin 9.9 g/dL (11.5-15.4); Immature Granulocytes % 0.2 % (0-4); Lymphocytes # 1.6 K/mcL (0.6-4.6); Lymphocytes % 29.6 %; Mean Corpuscular HGB Conc 31.5 g/dL (31.6-35.5); Mean Corpuscular Hemoglobin 30.4 pg (28.0-33.3); Mean Corpuscular Volume 96.3 fL (83.0-100.0); Mean Platelet Volume 9.7 fL (9.4-12.4); Monocytes # 0.4 K/mcL (0.0-1.3); Neutrophils # 3.2 K/mcL (1.6-8.9); Platelet Count 155 K/mcL (140-400); Red Blood Count 3.26 M/mcL (3.82-4.97); Red Cell Distribution Width 15.2 % (11.5-14.5); Segmented Neutrophils % 61.8 %; White Blood Count 5.2 K/mcL (4.3-11.1)
[2022-06-06 05:14] LABS: Albumin/Globulin Ratio 0.9 (1.1-2.2); Bilirubin,Total 0.4 mg/dL (0.3-1.0); Calcium 8.4 mg/dL (8.6-10.3); Globulin 3.4 g/dL (2.4-3.5); Potassium 4.1 mEq/L (3.5-5.1); Total Protein 6.4 g/dL (6.4-8.9)
[2022-06-06] MEDS: *HR* Enoxaparin 40 MG/0.4 ML SYRINGE SQ SCH (05:32)
[2022-06-06] MEDS ORDERED: 0.9 % Sodium Chloride 250 ML ONE (09:22)
[2022-06-06] MEDS: Cholecalciferol (D-3) 1,000 UNIT (25MCG) TABLET PO SCH ×2 (09:30→13:03)
[2022-06-06] MEDS: *HR* LORazepam 1 MG TABLET PO PRN ×2 (09:31→21:47)
[2022-06-06] MEDS: Aspirin Enteric Coated 81 MG Tablet PO SCH ×2 (09:31→13:02)
[2022-06-06] MEDS: Gabapentin 300 MG CAPSULE PO SCH ×2 (09:31→21:47)
[2022-06-06] MEDS: Azithromycin 500 MG in D5% in Water 250 ML IVPB SCH (09:31)
[2022-06-06] MEDS: Primidone 50 MG TABLET PO SCH ×3 (09:31→21:47)
[2022-06-06] MEDS: Cyanocobalamin (B-12) 1,000 MCG TABLET PO SCH ×2 (09:31→13:03)
[2022-06-06] MEDS: cefTRIAXone 1,000 MG in Water for inj. (sterile) 10 ML IVP SCH (13:09)
[2022-06-06] MEDS: Benzonatate 100 MG CAPSULE PO PRN (21:47)
[2022-06-07] MEDS: Insulin LISPRO 300 UNITS/3 ML VIAL SUBQ SCH ×4 (00:05→16:21)
[2022-06-07] MEDS: Ipratropium 1 PUFF INHALER IH SCH ×7 (00:06→22:46)
[2022-06-07] MEDS: *HR* Enoxaparin 40 MG/0.4 ML SYRINGE SQ SCH (05:24)
[2022-06-07 05:58] LABS: Basophils % 0.3 %; Eosinophils % 0.9 %; Hematocrit 32.1 % (35.3-44.9); Hemoglobin 10.1 g/dL (11.5-15.4); Immature Granulocytes % 0.3 % (0-4); Lymphocytes % 29.1 %; Mean Corpuscular HGB Conc 31.5 g/dL (31.6-35.5); Mean Corpuscular Hemoglobin 30.5 pg (28.0-33.3); Mean Platelet Volume 9.8 fL (9.4-12.4); Monocytes # 0.4 K/mcL (0.0-1.3); Platelet Count 148 K/mcL (140-400); Red Blood Count 3.31 M/mcL (3.82-4.97); Red Cell Distribution Width 15.6 % (11.5-14.5); Segmented Neutrophils % 58.4 %; White Blood Count 3.4 K/mcL (4.3-11.1)
[2022-06-07 06:09] LABS: Calcium 8.3 mg/dL (8.6-10.3); Potassium 4.5 mEq/L (3.5-5.1)
[2022-06-07] MEDS: Primidone 50 MG TABLET PO SCH ×2 (08:42→20:17)
[2022-06-07] MEDS: Cyanocobalamin (B-12) 1,000 MCG TABLET PO SCH (08:42)
[2022-06-07] MEDS: Cholecalciferol (D-3) 1,000 UNIT (25MCG) TABLET PO SCH (08:42)
[2022-06-07] MEDS: Gabapentin 300 MG CAPSULE PO SCH ×2 (08:42→20:17)
[2022-06-07] MEDS: Aspirin Enteric Coated 81 MG Tablet PO SCH (08:42)
[2022-06-07] MEDS: cefTRIAXone 1,000 MG in Water for inj. (sterile) 10 ML IVP SCH (10:01)
[2022-06-07] MEDS: Azithromycin 500 MG in D5% in Water 250 ML IVPB SCH (10:19)
[2022-06-07] MEDS: predniSONE 20 MG TABLET PO SCH (12:20)
[2022-06-08] MEDS: Ipratropium 1 PUFF INHALER IH SCH ×6 (04:01→23:29)
[2022-06-08] MEDS: *HR* Enoxaparin 40 MG/0.4 ML SYRINGE SQ SCH (05:55)
[2022-06-08] MEDS: Insulin LISPRO 300 UNITS/3 ML VIAL SUBQ SCH ×4 (05:57→17:25)
[2022-06-08] MEDS: Azithromycin 500 MG in D5% in Water 250 ML IVPB SCH (08:56)
[2022-06-08] MEDS: cefTRIAXone 1,000 MG in Water for inj. (sterile) 10 ML IVP SCH (08:57)
[2022-06-08] MEDS: Cholecalciferol (D-3) 1,000 UNIT (25MCG) TABLET PO SCH (08:58)
[2022-06-08] MEDS: Gabapentin 300 MG CAPSULE PO SCH ×2 (08:58→20:57)
[2022-06-08] MEDS: Aspirin Enteric Coated 81 MG Tablet PO SCH (08:59)
[2022-06-08] MEDS: Primidone 50 MG TABLET PO SCH ×2 (08:59→20:56)
[2022-06-08] MEDS: predniSONE 20 MG TABLET PO SCH (09:00)
[2022-06-08] MEDS: Cyanocobalamin (B-12) 1,000 MCG TABLET PO SCH (09:01)
[2022-06-09] MEDS: Insulin LISPRO 300 UNITS/3 ML VIAL SUBQ SCH ×5 (01:10→22:51)
[2022-06-09] MEDS: *HR* LORazepam 1 MG TABLET PO PRN ×2 (01:14→09:16)
[2022-06-09] MEDS: Ipratropium 1 PUFF INHALER IH SCH ×6 (03:42→23:47)
[2022-06-09] MEDS: *HR* Enoxaparin 40 MG/0.4 ML SYRINGE SQ SCH (05:42)
[2022-06-09] MEDS: Azithromycin 500 MG in D5% in Water 250 ML IVPB SCH (09:14)
[2022-06-09] MEDS: predniSONE 20 MG TABLET PO SCH (09:15)
[2022-06-09] MEDS: Cholecalciferol (D-3) 1,000 UNIT (25MCG) TABLET PO SCH (09:15)
[2022-06-09] MEDS: Primidone 50 MG TABLET PO SCH ×2 (09:15→20:25)
[2022-06-09] MEDS: Cyanocobalamin (B-12) 1,000 MCG TABLET PO SCH (09:16)
[2022-06-09] MEDS: Aspirin Enteric Coated 81 MG Tablet PO SCH (09:17)
[2022-06-09] MEDS: Gabapentin 300 MG CAPSULE PO SCH ×2 (09:17→20:10)
[2022-06-09] MEDS: cefTRIAXone 1,000 MG in Water for inj. (sterile) 10 ML IVP SCH (09:19)
[2022-06-10] MEDS: Ipratropium 1 PUFF INHALER IH SCH ×6 (04:33→23:59)
[2022-06-10] MEDS: Insulin LISPRO 300 UNITS/3 ML VIAL SUBQ SCH ×4 (05:15→23:12)
[2022-06-10] MEDS: *HR* Enoxaparin 40 MG/0.4 ML SYRINGE SQ SCH (05:15)
[2022-06-10] MEDS: Aspirin Enteric Coated 81 MG Tablet PO SCH (08:46)
[2022-06-10] MEDS: Gabapentin 300 MG CAPSULE PO SCH ×2 (08:46→20:22)
[2022-06-10] MEDS: Cholecalciferol (D-3) 1,000 UNIT (25MCG) TABLET PO SCH (08:46)
[2022-06-10] MEDS: Cyanocobalamin (B-12) 1,000 MCG TABLET PO SCH (08:47)
[2022-06-10] MEDS: Primidone 50 MG TABLET PO SCH ×2 (08:47→20:22)
[2022-06-10] MEDS: *HR* LORazepam 1 MG TABLET PO PRN (08:48)
[2022-06-10] MEDS: predniSONE 20 MG TABLET PO SCH (08:48)
[2022-06-11] MEDS: Ipratropium 1 PUFF INHALER IH SCH ×6 (03:34→21:42)
[2022-06-11] MEDS: *HR* Enoxaparin 40 MG/0.4 ML SYRINGE SQ SCH (05:37)
[2022-06-11] MEDS: Insulin LISPRO 300 UNITS/3 ML VIAL SUBQ SCH ×3 (05:38→22:13)
[2022-06-11] MEDS: Primidone 50 MG TABLET PO SCH ×2 (09:23→20:32)
[2022-06-11] MEDS: Cyanocobalamin (B-12) 1,000 MCG TABLET PO SCH (09:24)
[2022-06-11] MEDS: Aspirin Enteric Coated 81 MG Tablet PO SCH (09:24)
[2022-06-11] MEDS: Gabapentin 300 MG CAPSULE PO SCH ×2 (09:25→20:33)
[2022-06-11] MEDS: *HR* LORazepam 1 MG TABLET PO PRN (09:25)
[2022-06-11] MEDS: Cholecalciferol (D-3) 1,000 UNIT (25MCG) TABLET PO SCH (09:25)
[2022-06-11] MEDS: predniSONE 20 MG TABLET PO SCH (09:26)
[2022-06-11] MEDS: Benzonatate 100 MG CAPSULE PO PRN (09:26)
[2022-06-12] MEDS: Ipratropium 1 PUFF INHALER IH SCH ×2 (03:55→07:24)
[2022-06-12] MEDS: *HR* Enoxaparin 40 MG/0.4 ML SYRINGE SQ SCH (06:18)
[2022-06-12] MEDS ORDERED: Ipratropium 1 PUFF INHALER IH PRN (08:41)
[2022-06-12] MEDS: Aspirin Enteric Coated 81 MG Tablet PO SCH (08:44)
[2022-06-12] MEDS: Cholecalciferol (D-3) 1,000 UNIT (25MCG) TABLET PO SCH (08:44)
[2022-06-12] MEDS: Insulin LISPRO 300 UNITS/3 ML VIAL SUBQ SCH ×4 (08:45→21:11)
[2022-06-12] MEDS: Cyanocobalamin (B-12) 1,000 MCG TABLET PO SCH (08:45)
[2022-06-12] MEDS: Gabapentin 300 MG CAPSULE PO SCH ×2 (08:45→21:11)
[2022-06-12] MEDS: Primidone 50 MG TABLET PO SCH ×2 (08:48→21:11)
[2022-06-12] MEDS: Benzonatate 100 MG CAPSULE PO PRN (21:11)
[2022-06-12] MEDS: *HR* LORazepam 1 MG TABLET PO PRN (21:11)
[2022-06-13] MEDS: *HR* Enoxaparin 40 MG/0.4 ML SYRINGE SQ SCH (06:27)
[2022-06-13] MEDS: Gabapentin 300 MG CAPSULE PO SCH ×2 (09:01→20:35)
[2022-06-13] MEDS: Cholecalciferol (D-3) 1,000 UNIT (25MCG) TABLET PO SCH (09:01)
[2022-06-13] MEDS: Benzonatate 100 MG CAPSULE PO PRN ×2 (09:02→20:34)
[2022-06-13] MEDS: Aspirin Enteric Coated 81 MG Tablet PO SCH (09:02)
[2022-06-13] MEDS: Acetaminophen 325 MG TABLET PO PRN ×2 (09:02→20:33)
[2022-06-13] MEDS: Primidone 50 MG TABLET PO SCH ×2 (09:02→20:44)
[2022-06-13] MEDS: Insulin LISPRO 300 UNITS/3 ML VIAL SUBQ SCH ×4 (09:03→20:35)
[2022-06-13] MEDS: Cyanocobalamin (B-12) 1,000 MCG TABLET PO SCH (09:07)
[2022-06-14 05:48] VITALS: BP 136/60; PULSE 75; TEMP 98; O2SAT 100
[2022-06-14] MEDS: *HR* Enoxaparin 40 MG/0.4 ML SYRINGE SQ SCH (05:50)
[2022-06-14] MEDS: Cyanocobalamin (B-12) 1,000 MCG TABLET PO SCH (08:55)
[2022-06-14] MEDS: Gabapentin 300 MG CAPSULE PO SCH (08:55)
[2022-06-14] MEDS: Aspirin Enteric Coated 81 MG Tablet PO SCH (08:56)
[2022-06-14] MEDS: Insulin LISPRO 300 UNITS/3 ML VIAL SUBQ SCH (08:56)
[2022-06-14] MEDS: Cholecalciferol (D-3) 1,000 UNIT (25MCG) TABLET PO SCH (08:56)
[2022-06-14] MEDS: Primidone 50 MG TABLET PO SCH (08:58)
== END 2022-06-14 13:14 ==
LOC: 3NENU 06:03 → EMEROOARM 06:03 → SUATTDRO 14:02 → 3NENU 15:21
PROVIDERS: ADMIT General Practice; ATTEND Internal Medicine